=== PATIENT | male | born 1950 | race Caucasian/White ===

== ENCOUNTER → 2024-02-23 11:53 | Outpatient (BNVA) | payer MEDICARE, OTHER, SELFPAY | PROVIDERS: PCP Nurse Practitioner Primary Care; Referring Provider Nurse Practitioner Primary Care; Visit Provider Physical Therapy Assistant | DX: S81.802A Unspecified open wound, left lower leg, initial encounter (principal); X58.XXXA Exposure to other specified factors, initial encounter; B96.5 Pseudomonas (aeruginosa) (mallei) (pseudomallei) as the cause of diseases classified elsewhere | CPT/HCPCS: 99203 ==

== ENCOUNTER → 2024-03-01 11:25 | Outpatient (BNVA) | payer MEDICARE, OTHER, SELFPAY | PROVIDERS: PCP Nurse Practitioner Primary Care; Referring Provider Nurse Practitioner Primary Care; Visit Provider Physical Therapy Assistant | DX: S91.002D Unspecified open wound, left ankle, subsequent encounter (principal); X58.XXXD Exposure to other specified factors, subsequent encounter | CPT/HCPCS: 97605; 99213 ==

== ENCOUNTER → 2024-03-04 10:49 | Outpatient (BNVA) | payer MEDICARE, OTHER, SELFPAY | PROVIDERS: PCP Nurse Practitioner Primary Care; Referring Provider Nurse Practitioner Primary Care; Visit Provider Physical Therapy Assistant | DX: S91.002D Unspecified open wound, left ankle, subsequent encounter (principal); X58.XXXD Exposure to other specified factors, subsequent encounter | CPT/HCPCS: 97605 ==

== ENCOUNTER 2024-03-08 11:23 | Outpatient (REF) | payer MEDICARE, OTHER, SELFPAY | END 2024-03-08 11:24 | disposition home or self-care (01) | LOC: LBN 11:23 | PROVIDERS: PCP Nurse Practitioner Primary Care; Visit Provider Physical Therapy Assistant | DX: Z51.89 Encounter for other specified aftercare (principal) | CPT/HCPCS: 87077; 87070; 87075; 87186; 87205 ==

== ENCOUNTER → 2024-03-08 11:23 | Outpatient (BNVA) | payer MEDICARE, OTHER, SELFPAY | PROVIDERS: PCP Nurse Practitioner Primary Care; Referring Provider Nurse Practitioner Primary Care; Visit Provider Physical Therapy Assistant | DX: S91.002D Unspecified open wound, left ankle, subsequent encounter (principal); X58.XXXD Exposure to other specified factors, subsequent encounter | CPT/HCPCS: 99213 ==

== ENCOUNTER → 2024-03-13 08:45 | Outpatient (BNVA) | payer MEDICARE, OTHER, SELFPAY | PROVIDERS: PCP Nurse Practitioner Primary Care; Referring Provider Nurse Practitioner Primary Care; Visit Provider Physical Therapy Assistant | DX: S91.002D Unspecified open wound, left ankle, subsequent encounter (principal); X58.XXXD Exposure to other specified factors, subsequent encounter | CPT/HCPCS: 99213 ==

== ENCOUNTER → 2024-03-19 09:21 | Outpatient (BNVA) | payer MEDICARE, OTHER, SELFPAY | PROVIDERS: PCP Nurse Practitioner Primary Care; Referring Provider Nurse Practitioner Primary Care; Visit Provider Physical Therapy Assistant | DX: S91.002D Unspecified open wound, left ankle, subsequent encounter (principal); X58.XXXD Exposure to other specified factors, subsequent encounter | CPT/HCPCS: 97597 ==

== ENCOUNTER → 2024-03-25 14:27 | Outpatient (BNVA) | payer MEDICARE, OTHER, SELFPAY | PROVIDERS: PCP Nurse Practitioner Primary Care; Referring Provider Nurse Practitioner Primary Care; Visit Provider Physical Therapy Assistant | DX: S81.802D Unspecified open wound, left lower leg, subsequent encounter (principal); X58.XXXD Exposure to other specified factors, subsequent encounter | CPT/HCPCS: 99213 ==

== ENCOUNTER → 2024-04-05 09:19 | Outpatient (BNVA) | payer MEDICARE, OTHER, SELFPAY | PROVIDERS: PCP Nurse Practitioner Primary Care; Referring Provider Nurse Practitioner Primary Care; Visit Provider Physical Therapy Assistant | DX: S81.802D Unspecified open wound, left lower leg, subsequent encounter (principal); X58.XXXD Exposure to other specified factors, subsequent encounter | CPT/HCPCS: 99213 ==

== ENCOUNTER → 2024-04-19 09:20 | Outpatient (BNVA) | payer MEDICARE, OTHER, SELFPAY | PROVIDERS: PCP Nurse Practitioner Primary Care; Referring Provider Nurse Practitioner Primary Care; Visit Provider Physical Therapy Assistant | DX: S81.802D Unspecified open wound, left lower leg, subsequent encounter (principal); X58.XXXD Exposure to other specified factors, subsequent encounter | CPT/HCPCS: 99213 ==

== ENCOUNTER → 2024-05-10 09:27 | Outpatient (BNVA) | payer MEDICARE, OTHER, SELFPAY | PROVIDERS: PCP Nurse Practitioner Primary Care; Referring Provider Nurse Practitioner Primary Care; Visit Provider Physical Therapy Assistant | DX: S81.802D Unspecified open wound, left lower leg, subsequent encounter (principal); X58.XXXD Exposure to other specified factors, subsequent encounter | CPT/HCPCS: 99213 ==

== ENCOUNTER → 2024-05-24 09:18 | Outpatient (BNVA) | payer MEDICARE, OTHER, SELFPAY | PROVIDERS: PCP Nurse Practitioner Primary Care; Referring Provider Nurse Practitioner Primary Care; Visit Provider Physical Therapy Assistant | DX: S81.802D Unspecified open wound, left lower leg, subsequent encounter (principal); X58.XXXD Exposure to other specified factors, subsequent encounter | CPT/HCPCS: 99213 ==

== ENCOUNTER → 2024-06-14 09:20 | Outpatient (BNVA) | payer MEDICARE, OTHER, SELFPAY | PROVIDERS: PCP Nurse Practitioner Primary Care; Referring Provider Nurse Practitioner Primary Care; Visit Provider Physical Therapy Assistant | DX: S81.802D Unspecified open wound, left lower leg, subsequent encounter (principal); X58.XXXD Exposure to other specified factors, subsequent encounter | CPT/HCPCS: 99213 ==

== ENCOUNTER → 2024-07-19 09:19 | Outpatient (BNVA) | payer MEDICARE, OTHER, SELFPAY | PROVIDERS: PCP Nurse Practitioner Primary Care; Referring Provider Nurse Practitioner Primary Care; Visit Provider Physical Therapy Assistant | DX: S81.802D Unspecified open wound, left lower leg, subsequent encounter (principal); X58.XXXD Exposure to other specified factors, subsequent encounter | CPT/HCPCS: 99213 ==

== ENCOUNTER 2024-08-09 15:33 | Outpatient (REF) | payer MEDICARE, OTHER, SELFPAY ==
[2024-08-09 16:57] LABS: Anion Gap 7.9 mmol/L (3-11); BUN 34 mg/dL (7-18); CO2 27.1 mmol/L (21.0-32.0); CREATININE 1.4 mg/dL (0.70-1.30); Calcium 9.1 mg/dL (8.5-10.1); Calculated LDL 102 mg/dL (<100); Chloride 111 mmol/L (98-107); Cholesterol 192 mg/dL (<200); Glucose 91 mg/dL (74-106); HDL Cholesterol 70 mg/dL (>or=40); Potassium 4.6 mmol/L (3.5-5.1); Sodium 146 mmol/L (136-145); Triglyceride 101 mg/dL (<150)
[2024-08-09 23:01] LABS: PSA, Screening 1.4 ng/mL (<=6.5)
[2024-08-11 10:19] LABS: HIV-1/2 Ag & Ab Screen Negative (Negative)
[2024-08-12 13:26] LABS: Hepatitis C Ab w Rflx HCV PCR Negative (Negative)
== END 2024-08-09 15:34 | disposition home or self-care (01) ==
LOC: NCHCN 15:33
PROVIDERS: PCP Nurse Practitioner Primary Care; Visit Provider Family Medicine
DX: Z11.4 Encounter for screening for human immunodeficiency virus [HIV] (principal); R03.0 Elevated blood-pressure reading, without diagnosis of hypertension; Z12.5 Encounter for screening for malignant neoplasm of prostate; Z11.59 Encounter for screening for other viral diseases
CPT/HCPCS: 80048; 80061; 84153; 86803; 87389

== ENCOUNTER → 2024-08-23 09:30 | Outpatient (BNVA) | payer MEDICARE, OTHER, SELFPAY | PROVIDERS: Visit Provider Physical Therapy Assistant | DX: Z51.89 Encounter for other specified aftercare (principal); S81.802A Unspecified open wound, left lower leg, initial encounter; X58.XXXA Exposure to other specified factors, initial encounter | CPT/HCPCS: 99212 ==

== ENCOUNTER → 2024-09-20 09:20 | Outpatient (BNVA) | payer MEDICARE, OTHER, SELFPAY | PROVIDERS: Visit Provider Physical Therapy Assistant | DX: S81.802D Unspecified open wound, left lower leg, subsequent encounter (principal); X58.XXXD Exposure to other specified factors, subsequent encounter | CPT/HCPCS: 99213 ==

== ENCOUNTER → 2024-10-17 08:26 | Outpatient (BNVA) | payer MEDICARE, OTHER, SELFPAY | PROVIDERS: Visit Provider Physical Therapy Assistant | DX: S91.002D Unspecified open wound, left ankle, subsequent encounter (principal); X58.XXXD Exposure to other specified factors, subsequent encounter | CPT/HCPCS: 99213 ==

== ENCOUNTER 2024-11-06 01:42 | Outpatient (CLI) | payer MEDICARE, OTHER, SELFPAY ==
--- NOTE | 2024-11-06 10:21 | DI.RAD_ITS ---
Exam(s) XR HIP RT COMPLETE AP PELVIS EXAM: XR HIP RT COMPLETE AP PELVIS CLINICAL HISTORY: M25.551 Pain in RT hip. TECHNIQUE: 2D digital imaging was performed of the right hip. Two images were obtained. AP pelvis a nd lateral right hip views were obtained. COMPARISON: No exams were available for comparison FINDINGS: BONES: No acute fracture is present. No bony destructive lesion is seen. The patient's left hip arthr oplasty is incompletely imaged. JOINTS: No dislocation present. There is narrowing of the superior joint space of the right hip. The re is prominent osteophyte of the acetabular roof. SOFT TISSUE: Normal. IMPRESSION: Femoral acetabular impingement with osteoarthritis. Unremarkable radiographs of the pelvis. DATA REPOSITORY: RADIATION DOSE DELIVERED:
== END 2024-11-06 02:02 ==
PROVIDERS: PCP Family Medicine; Visit Provider Family Medicine
DX: M16.11 Unilateral primary osteoarthritis, right hip (principal)
CPT/HCPCS: 73502

== ENCOUNTER 2024-12-16 23:50 | Inpatient (IN) | payer MEDICARE, OTHER, SELFPAY ==
[2024-12-16 23:58] VITALS: BP 155/104; PULSE 90; RESP 20; TEMP 36.8; O2SAT 98
[2024-12-17] VITALS (77 sets, daily range): BP systolic 116–166; BP diastolic 75–99; PULSE 68–91; RESP 10–29; TEMP 36.3–36.9; O2SAT 91–99
--- NOTE | 2024-12-17 | DI.CT_ITS ---
Exam(s) CT ABDOMEN PELVIS W EXAM: CT ABDOMEN PELVIS W CLINICAL HISTORY: abd pain, diffuse tenderness, firm abdomen TECHNIQUE: Imaging Protocol: Axial computed tomography images with coronal and sagittal reformatted images were created and reviewed. CONTRAST MATERIAL: Intravenous: Omnipaque 350 Contrast volume:75 mL Oral: No COMPARISON: CR XR HIP RT COMPLETE AP PELVIS from 11/06/2024 FINDINGS: There is artifact in the pelvis secondary to the patient's left total hip arthroplasty. ABDOMEN: Lung Bases: There is a large hiatal hernia. Liver: Normal density. There is a tiny hypodensity in the right lobe of the liver likely reflecting a cyst. No suspicious hepatic masses are seen. Portal, Superior Mesenteric, and Splenic Veins: Unremarkable. Gallbladder and Biliary Tract: Cholelithiasis. No biliary ductal dilatation. Pancreas: Normal density, no abnormal calcifications or inflammatory process. Spleen: Normal. Adrenals: No masses seen. Kidneys: Normal size, contour and axis. No radiodense stones or obstructive uropathy. No masses seen. Abdominal Aorta: Abdominal portion non-dilated. Atherosclerotic calcification is present. Bowel: There is diverticulosis of the colon, but no evidence of acute diverticulitis. There is a moderate amount of stool throughout the colon suggesting constipation. There are surgical clips seen in the cecum suggesting prior appendicitis. There are fluid-filled dilated loops of small bowel with n ormal caliber old distal small bowel. The transition appears to lie in the mid right abdomen. The stomach is distended. The findings are suspicious for small bowel obstruction. Peritoneal Cavity: No ascites, collection or mesenteric inflammatory response. No free air. Lymph Nodes: Within normal limits. Bones: Within normal limits for the patient's age. There is a bone island in the right iliac bone. The patient has a left total hip arthroplasty. There is a right convex lumbar scoliosis. Soft Tissues: Unremarkable. There is mild fatty atrophy of the left gluteal musculature. PELVIS: Bladder: Symmetric distention, no gross wall thickening. Reproductive Organs: Unremarkable as visualized. Lymph Nodes: Within normal limits. Bones: Within normal limits for the patient's age. IMPRESSION: 1. Findings suggestive of a small-bowel obstruction with the transition in the mid right abdomen. 2. No evidence of pneumoperitoneum or ascites. 3. Cholelithiasis. 4. Colonic diverticulosis without definite evidence to suggest acute diverticulitis. 5. The preliminary [facility] report was reviewed. RADIATION DOSE DELIVERED: 437.4mGy.cm Total DLP DATA REPOSITORY: All CT scans at this facility are submitted to the National Radiology Data Registry (NRDR) Dose Index Registry (DIR) with the [employer] ([employer]). RADIATION OPTIMIZATION: All CT scans at this facility use at least one of these dose optimization techniques: automated exposure control; mA and/or kV adjustment per patient size (includes targeted exams where dose is matched to clinical indication); or iterative reconstruction.
--- NOTE | 2024-12-17 | DI.RAD_ITS ---
Exam(s) XR ABDOMEN FLAT PLATE EXAM: 2D digital imaging was performed. CLINICAL HISTORY: SBO. COMPARISON: CT CT ABDOMEN PELVIS W from 12/17/2024 TECHNIQUE: Supine views of the abdomen was performed. Two views were obtained. FINDINGS: BOWEL GAS PATTERN: Nondistended.There is a single mildly dilated loop of small bowel in the left abdomen. There is air seen in the colon and rectum. CALCIFICATIONS: No radiopaque calcifications. OSSEOUS STRUCTURES: Normal for age. The patient has a left hip arthroplasty. OTHER FINDINGS: Contrast is seen in the renal collecting system consistent with the patient's recent CT examination. IMPRESSION: 1. Nonobstructive bowel gas pattern. 2. Residual identity contrast is seen in the renal collecting system consistent with the patient's recent CT examination. DATA REPOSITORY: RADIATION DOSE DELIVERED:
--- NOTE | 2024-12-17 00:04 | W.ED.GENAD ---
Discharge Plan Disposition Patient Disposition: Admit to [facility] Condition: Fair Discharge Details Clinical Impression: SBO (small bowel obstruction), Sigmoid diverticulitis Primary Care Provider: Marisa Dunn ED Provider: Yoan Haile and New Rx's Prescriptions: No Action ibuprofen 600 mg tablet 600 mg PO Q6H PRN amlodipine 5 mg tablet 5 mg PO DAILY Patient Comments: TAKE ONE TABLET BY MOUTH EVERY DAY HPI General Mode of arrival: ambulatory. Date/Time Provider Initiated Documentation: 12/17/24 00:04. Limitations to Documentation: no limitations. Information obtained by: patient and RN notes reviewed. HPI Narrative: Patient presents to ED with lower abdominal pain. Patient reports that he noted some abdominal discomfort on and off over the last couple of days. This evening pain became constant and worsening. Seems to be mostly across the lower abdomen. Denies any radiation of pain to the groin or back. Denies any nausea, vomiting, diarrhea or change in bowel habit. Denies any urinary symptoms. Denies any fever. He is status post appendectomy in the past, no other abdominal surgeries. He was able to eat this evening without difficulty. Pain became worse throughout the evening and presents now with inability to sleep due to pain. Related Data Home Medications ?Medication ?Instructions ?Recorded ?Confirmed ibuprofen 600 mg tablet 600 mg PO Q6H PRN 02/22/24 12/17/24 amlodipine 5 mg tablet 5 mg PO DAILY 12/17/24 12/17/24 Allergies Allergy/AdvReac Type Severity Reaction Status Date / Time No Known Allergies Allergy Unverified 12/17/24 00:00 General Stated Complaint: Abd Prob NISSA: 3 Exam Narrative Exam Narrative: Const: WDWN elderly male in NAD. VS per triage. HEENT: NC/AT. Normal facial exam. Neck: Supple. Trachea midline. Lungs: Normal respiratory effort. Lungs are clear. Cor: RRR without murmur. Good radial pulses. GI: Soft/ND. Firm with generalized tenderness. Neuro: A+O x 3. Normal speech, mentation, gait. Cranial nerves II - XII grossly intact. No gross motor or sensory deficit. Ext: No C/C/E. Course Vital Signs Vital signs: Vital Signs Temperature 98.2 F 12/16/24 23:58 Pulse 90 12/16/24 23:58 Respiratory Rate 20 12/16/24 23:58 Blood Pressure 155/104 H 12/16/24 23:58 Pulse Oximetry 98 12/16/24 23:58 Temperature 98.2 F 12/16/24 23:58 Temperature Source Oral 12/16/24 23:58 Pulse 90 12/16/24 23:58 Respiratory Rate 20 12/16/24 23:58 Blood Pressure 155/104 H 12/16/24 23:58 Blood Pressure Position Sitting 12/16/24 23:58 Pulse Oximetry 98 12/16/24 23:58 Oxygen Delivery Method Room Air 12/16/24 23:58 Oxygen Flow Rate 0 12/16/24 23:58 Pain Level 8 12/16/24 23:58 Medical Decision Making Elderly male presenting to ED with abdominal pain. He is not febrile and he otherwise looks well but his abdomen is firm and generally tender. IV is established and fluids started. Morphine given for pain. Laboratory studies obtained and a CT scan of the abdomen pelvis is ordered. Initial impression and concern would be diverticulitis with possible perforation. I will cover with ceftriaxone because of the diffuse tenderness and firmness present on exam. Patient's laboratory studies are reassuring. His white count is normal. His differential is normal. Lactic acid and VBG are normal. Electrolytes, liver function, lipase all normal. BUN is a little elevated at 23 but creatinine normal at 1.3. CT scan discussed with radiology directly. Does have a small bowel obstruction that may be partial versus early given feces and air in the colon. His left hip prosthesis causes artifact in the pelvis but there does appear to be probable sigmoid diverticulitis. Patient's pain was improved with morphine. Starting to come back now so we will give a second dose. He is to remain NPO. Will continue fluids and have given him a dose of IV metronidazole. Case discussed with surgery, Dr. Escoto. Okay for now to not place NG tube but patient is to stay n.p.o. Patient to be admitted to hospitalist service and surgery will see in the morning. Patient discussed with Dr. Leal. Patient accepted to hospitalist service for further management. Patient and aware of diagnosis and need for admission and consent to same. Medical Records Medical records reviewed: Yes I reviewed the patient's medical records. Medical records narrative: PCP notes in [facility] Imaging Data Radiologic Study: Attestation: I personally reviewed and interpreted this imaging study as follows: Imaging: CT Scan My impression: SBO Radiologist's impression: IMPRESSION: 1. Consistent with small bowel obstruction as described above. 2. Colonic diverticulosis with perisigmoid fat stranding. This is poorly evaluated due to artifact but sigmoid diverticulitis cannot be excluded. Clinical correlation advised. 3. Additional findings as above. 4. THIS REPORT CONTAINS FINDINGS THAT MAY BE CRITICAL TO PATIENT CARE. The findings were verbally communicated via telephone conference with YOAN HAILE at 1:49 AM EDT on 12/17/2024. The findings were acknowledged and understood. Thank you for allowing us to participate in the care of your patient. Dictated and Authenticated by: Susan Forrester MD Lab Data Lab results reviewed: Yes I reviewed the patient's lab results. Lab results narrative: see MDM PFS All Active Problems (Updated 12/17/24 @ 02:06 by Yoan Haile MD) Sigmoid diverticulitis (Acute) SBO (small bowel obstruction) (Acute) Medical History HTN (hypertension) Surgical History S/P spinal surgery Status post THR (total hip replacement) S/P appendectomy Social History (Updated 12/17/24 @ 00:19 by Yoan Haile MD) Smoking/Tobacco Use Status: Former Tobacco Use Smoking risk assessment performed?: Yes Housing: house
[2024-12-17 00:15] LABS: BE (Venous) 3 mmol/L (-2-3); HCO3 (Venous) 28 mmol/L (23-28); O2 Sat (Venous) 61 %; TCO2 (Venous) 25 mmol/L (24-29); pCO2 (Venous) 48 mmHg (41-51); pO2 (Venous) 34 mmHg
[2024-12-17 00:17] LABS: Abs Immature Grans 0.02 10^3/uL (0.0-0.06); HCT 40.0 % (40.0-50.0); HGB 13.2 g/dL (13.5-17.5); Immature Grans % 0.3 %; MCH 30.3 pg (27.0-33.0); MCHC 33.0 % (32.0-36.0); MCV 92 fL (80-95); MPV 11.7 fL (8.0-11.0); Platelet Count 201 10^3/uL (130-400); RBC 4.35 10^6/uL (4.36-5.78); RDW 13.9 % (11.8-14.1); RDW-SD 47.6 fL; WBC 6.41 10^3/uL (4.4-10.8)
[2024-12-17] MEDS: Normal Saline 1,000 ML 1000 ML IV (00:24)
[2024-12-17] MEDS: MORPHine 4 MG/ML SYR IVP (00:24)
[2024-12-17 00:32] LABS: ALT 21 U/L (16-63); AST 18 U/L (15-37); Albumin 3.9 g/dL (3.4-5.0); Alkaline Phosphatase 97 U/L (46-116); Anion Gap 10.7 mmol/L (3-11); BUN 23 mg/dL (7-18); Bilirubin, Total 0.5 mg/dL (0.2-1.0); CO2 26.3 mmol/L (21.0-32.0); Calcium 9.2 mg/dL (8.5-10.1); Chloride 106 mmol/L (98-107); Estimated GFR 58.37 (mL/min/1.73m2); Glucose 110 mg/dL (74-106); Lipase 50 U/L (<78); Magnesium 2.1 mg/dL (1.8-2.4); Potassium 4.5 mmol/L (3.5-5.1); Sodium 143 mmol/L (136-145); Total Protein 7.4 g/dL (6.4-8.2)
[2024-12-17] MEDS: cefTRIAXone 1 GM/50 ML BAG IVPB ×2 (00:32→22:03)
[2024-12-17] MEDS: Omnipaque 350 MG/ML 100 ML BTL IJ (00:41)
[2024-12-17] MEDS: Normal Saline Flush 10 ML SYR IVP (00:43)
[2024-12-17] MEDS: Normal Saline - Diluent 50 ML VIAL IJ (00:43)
--- NOTE | 2024-12-17 01:51 | DI.[facility]_ITS ---
PROCEDURE INFORMATION: Exam: CT Abdomen And Pelvis With Contrast Exam date and time: 12/17/2024 12:43 AM Age: 74 years old Clinical indication: Abdominal pain; Prior surgery; Surgery date: 6+ months; Surgery type: Appendectomy, L hip; Abd pain, diffuse tenderness, firm abdomen TECHNIQUE: Imaging protocol: Computed tomography of the abdomen and pelvis with contrast. Radiation optimization: All CT scans at this facility use at least one of these dose optimization techniques: automated exposure control; mA and/or kV adjustment per patient size (includes targeted exams where dose is matched to clinical indication); or iterative reconstruction. Contrast material: OMNIPAQUE 350; Contrast volume: 75 ml; Contrast route: INTRAVENOUS (IV); COMPARISON: No relevant prior studies are available for comparison. FINDINGS: Limitations: Artifact from left hip prosthesis limits evaluation of the surrounding tissues. Lungs: Scarring at the lung bases. Heart: Pericardial calcifications. Diaphragm: Large hiatal hernia, incompletely imaged. Liver: Low attenuation lesions in the liver too small to accurately characterize on CT. Borderline hepatomegaly. Gallbladder and biliary ducts: Multiple gallbladder calculi. Pancreas: No CT evidence for acute pancreatitis. Spleen: No splenomegaly. Adrenal glands: No mass. Kidneys and ureters: No hydronephrosis or evidence for pyelonephritis. Stomach and bowel: Multiple distended borderline dilated air and fluid-filled small bowel loops are identified and collapsed loops are also seen. Findings are consistent with small bowel obstruction. Transition point seen in the mid abdomen. Gas and fecal material are present in the colon, suggesting that the obstruction may be early/partial or intermittent. Colonic diverticula noted. Mild stranding in the perisigmoid fat in the pelvis, poorly evaluated due to artifact. Cannot exclude diverticulitis. Appendix: No evidence of appendicitis. Intraperitoneal space: See Stomach and bowel finding. Vasculature: Atherosclerotic changes in the aorta and its branches. Lymph nodes: Nonspecific mesenteric and retroperitoneal lymph nodes. Urinary bladder: No acute findings. Reproductive: No acute findings. Bones/joints: Left hip prosthesis. Artifact limits evaluation of the surrounding tissues. Soft tissues: No pertinent acute abnormality seen. IMPRESSION: 1. Consistent with small bowel obstruction as described above. 2. Colonic diverticulosis with perisigmoid fat stranding. This is poorly evaluated due to artifact but sigmoid diverticulitis cannot be excluded. Clinical correlation advised. 3. Additional findings as above. 4. THIS REPORT CONTAINS FINDINGS THAT MAY BE CRITICAL TO PATIENT CARE. The findings were verbally communicated via telephone conference with YOAN HAILE at 1:49 AM EDT on 12/17/2024. The findings were acknowledged and understood. Dictated and Authenticated by: Susan Forrester MD. Orderin Jesus Hensley MD
[2024-12-17] MEDS: metroNIDAZOLE 500 MG/100 ML BAG 100 MG IVPB ×4 (02:00→19:46)
--- NOTE | 2024-12-17 02:14 | HPE_ITS ---
Date of service: 12/17/24 Time of Service: 02:14 Assessment and Plan Assessment and plan (1) Sigmoid diverticulitis: Status: Acute Assessment and plan: - As seen on CT abdomen pelvis - Without elevated white cell count, or signs of perforation, may be primary cause of partial/early SBO as noted below - Started on ceftriaxone and Flagyl IV, will continue (2) SBO (small bowel obstruction): Status: Acute Assessment and plan: - Again, as seen on CT abdomen pelvis as noted above - May be secondary to diverticulitis as noted above - Given the patient is without nausea or vomiting, NG tube not been placed at this time as discussed with general surgery - N.p.o. - Has caused significant abdominal pain is received IV morphine in the emergency department - Will give 1 mg IV Dilaudid every 4 hours as needed for pain - If patient does develop worsening abdominal pain, nausea or vomiting will place NG tube and repeat discussed with general surgery (3) HTN (hypertension): Assessment and plan: - Hold home p.o. amlodipine - Monitor blood pressure and give IV antihypertensive if needed History of Present Illness History of Present Illness Chief Complaint: abdominal pain Narrative: 74-year-old gentleman with a past medical history of hypertension who presents to the emergency department with abdominal pain. Patient states that over the last few days he has had on and off abdominal pain that has become significantly worse on the evening but he arrived to the emergency department. He says it is across his lower abdomen denies it radiating to his back or groin. He denies any fevers, chest pain, shortness of breath, nausea vomiting diarrhea or decrease in frequency of bowel movements. In the emergency department patient was noted as having normal vital signs, CBC, CMP. However, given his abdominal pain he had a CT abdomen pelvis that did show some diverticulitis and may be early small bowel obstruction/partial obstruction given the feces and air were seen in the colon. Case was discussed with general surgery and agreed that patient did not need NG tube as he was not experiencing nausea or vomiting however did recommend him being n.p.o. and initiating antibiotics for his diverticulitis for which she was started on ceftriaxone and Flagyl. At which time emergency room physician paged hospitalist for admission for patient with diverticulitis and possible partial/early small bowel obstruction. Review of Systems All systems reviewed & are unremarkable except as noted in HPI and below PFSH All Active Problems (Updated 12/17/24 @ 02:06 by Ayden Lee MD) Sigmoid diverticulitis (Acute) SBO (small bowel obstruction) (Acute) Medical History HTN (hypertension) Surgical History S/P spinal surgery Status post THR (total hip replacement) S/P appendectomy Social History (Updated 12/17/24 @ 00:19 by Ayden Lee MD) Smoking/Tobacco Use Status: Former Tobacco Use Smoking risk assessment performed?: Yes Housing: house Meds Allergies and Home Medications Allergies Allergy/AdvReac Type Severity Reaction Status Date / Time No Known Allergies Allergy Unverified 12/17/24 00:00 Home Medications ?Medication ?Instructions ?Recorded ?Confirmed ?Type ibuprofen 600 mg tablet 600 mg PO Q6H PRN 02/22/24 0 12/17/24 History amlodipine 5 mg tablet 5 mg PO DAILY 12/17/2412/17 History Exam Narrative Exam Narrative: Well-appearing older gentleman laying in bed in no acute distress, ANO x 4, heart regular rhythm, lungs clear to auscultation bilaterally, abdomen with mild to moderate tenderness to palpation of lower quadrants without rebound or guarding, positive bowel sounds Results Labs 12/17/24 05:15 12/17/24 05:15 Labs: Laboratory Results - last 24 hr 12/17/24 00:05 WBC 6.41 RBC 4.35 L Hgb 13.2 L Hct 40.0 MCV 92 MCH 30.3 MCHC 33.0 RDW 13.9 Plt Count 201 MPV 11.7 H Immature Gran % 0.3 Neutrophils % 69.5 Lymphocytes % 21.5 Monocytes % 6.2 Eosinophils % 1.9 Basophils % 0.6 Nucleated RBC % 0.0 Absolute Neutrophils 4.45 Absolute Lymphocytes 1.38 Absolute Monocytes 0.40 Absolute Eosinophils 0.12 Absolute Basophils 0.04 VBG pH 7.37 VBG pCO2 48 VBG pO2 34 VBG HCO3 28 VBG Total CO2 25 VBG O2 Saturation 61 VBG Base Excess 3 VBG Lactate 0.7 Sodium 143 Potassium 4.5 Chloride 106 Carbon Dioxide 26.3 Anion Gap 10.7 BUN 23 H Creatinine 1.3 Est GFR (CKD-EPI 2020) 58.37 Glucose 110 H Calcium 9.2 Magnesium 2.1 Total Bilirubin 0.5 AST 18 ALT 21 Alkaline Phosphatase 97 Total Protein 7.4 Albumin 3.9 Lipase 50 Last Vital Signs Temp 98.2 F 12/16/24 23:58 Pulse 72 12/17/24 01:50 Resp 17 12/17/24 01:50 BP 148/95 H 12/17/24 01:30 Pulse Ox 95 12/17/24 01:50 Time Spent Time spent with Patient: >75 minutes Time was spent: preparing to see the patient(eg.review tests), obtaining and/or reviewing separately otained hiistory, ordering medications,tests, procedures, referring, communicating with other health healthcare market consultant, indepentently interpreting results, counseling the patient and care coordination
[2024-12-17] MEDS: HYDROmorphone 2 MG/ML SYR 1 MG IVP ×6 (02:29→23:56)
[2024-12-17] MEDS: Normal Saline 1,000 ML 75 ML IV ×2 (03:05→19:35)
[2024-12-17 05:19] LABS: HCT 36.7 % (40.0-50.0); HGB 12.1 g/dL (13.5-17.5); MCH 30.6 pg (27.0-33.0); MCHC 33.0 % (32.0-36.0); MCV 93 fL (80-95); MPV 11.3 fL (8.0-11.0); Platelet Count 160 10^3/uL (130-400); RBC 3.96 10^6/uL (4.36-5.78); RDW 14.0 % (11.8-14.1); RDW-SD 48.0 fL; WBC 6.08 10^3/uL (4.4-10.8)
[2024-12-17 05:30] LABS: Anion Gap 6.1 mmol/L (3-11); BUN 21 mg/dL (7-18); CO2 28.9 mmol/L (21.0-32.0); Calcium 8.4 mg/dL (8.5-10.1); Chloride 108 mmol/L (98-107); Estimated GFR 71.32 (mL/min/1.73m2); Glucose 123 mg/dL (74-106); Potassium 4.5 mmol/L (3.5-5.1); Sodium 143 mmol/L (136-145)
--- NOTE | 2024-12-17 07:21 | W.SURGCON ---
Date of service: 12/17/24 Time of Service: 07:22 Assessment and Plan Assessment and plan (1) SBO (small bowel obstruction): Status: Acute Assessment and plan: Worsening pain after eating last night and CT scan showing proximal small bowel dilation with distal decompression consistent with partial small bowel obstruction. Gas in the colon indicates not complete obstruction. Patient had bowel movement yesterday, which was normal. No prior similar symptoms. Stomach not distended on imaging and patient without nausea or vomiting - No NG tube necessary at this time - Follow-up KUB this morning - Will likely start clear liquid diet?pending KUB - encouraged ambulation - reviewed scar tissue from prior surgery as likely cause for small bowel obstruction (2) Sigmoid diverticulitis: Status: Acute Assessment and plan: Sigmoid colon with diverticuli and possible local inflammation on CT scan. No evidence of perforation or abscess. Images degraded by streak artifact from hip replacement - Continue IV antibiotics - No acute surgical intervention necessary for either process at this time- (3) HTN (hypertension): Assessment and plan: - Continue home medication per medicine team History of Present Illness History of Present Illness Chief Complaint: lower abdominal pain Narrative: 74-year-old male with history of appendectomy in the past presenting for lower abdominal pain. Pain started 3 days ago. Patient was able to tolerate dinner but then pain became worse in the evening, preventing him from sleeping. No similar pain in the past. Denies fevers, chills, chest pain, shortness of breath. No nausea or vomiting. Last bowel movement yesterday morning. Pain remains in the lower abdomen, slightly improved. No radiation or migration of pain. Last bowel movement soft. No blood or melena Review of Systems Constitutional Constitutional: Denies anorexia, Denies chills, Denies fever(s) and Denies weakness Cardiovascular Cardiovascular: Denies chest pain, Denies irregular heart rhythm and Denies dyspnea Respiratory Respiratory: Denies cough and Denies dyspnea Gastrointestinal Gastrointestinal: Reports abdominal pain, Denies melena, Denies hematochezia, Denies change in bowel habits, Denies constipation, Denies diarrhea, Denies nausea and Denies vomiting Genitourinary Genitourinary: Denies hematuria, Denies difficulty urinating and Denies dysuria Neurologic Neurologic: Denies weakness Hematologic/Lymphatic Hematologic/Lymphatic: Denies easy bleeding and Denies easy bruising [facility] All Active Problems (Updated 12/17/24 @ 10:36 by Michael Escoto DO) Sigmoid diverticulitis (Acute) SBO (small bowel obstruction) (Acute) Medical History HTN (hypertension) Surgical History S/P spinal surgery Status post THR (total hip replacement) S/P appendectomy Social History Smoking/Tobacco Use Status: Former Tobacco Use Smoking risk assessment performed?: Yes Housing: house Exam Const General: cooperative, healthy appearing, comfortable and no acute distress Eyes Sclera: sclerae normal Pupils: PERRL EOM: EOM intact bilaterally Resp Effort & Inspection: normal respiratory effort and no cough Cardio Rate: regular rate Rhythm: regular rhythm GI Inspection: normal to inspection and non-distended Palpation: no guarding and tender other (across lower abdomen) Skin General skin exam: turgor normal, no ecchymosis and no pallor Neuro General: patient alert, patient awake and patient oriented x3 Cognition: normal cognition Speech: speech normal Results Last Vital Signs Temp 36.8 C 12/16/24 23:58 Pulse 72 12/17/24 06:10 Resp 16 12/17/24 06:10 BP 139/92 H 12/17/24 06:00 Pulse Ox 96 12/17/24 06:10 Labs 12/17/24 05:15 12/17/24 05:15 Labs: Laboratory Results - last 24 hr 12/17/24 12/17/24 00:05 05:15 WBC 6.41 6.08 RBC 4.35 L 3.96 L Hgb 13.2 L 12.1 L Hct 40.0 36.7 L MCV 92 93 MCH 30.3 30.6 MCHC 33.0 33.0 RDW 13.9 14.0 Plt Count 201 160 MPV 11.7 H 11.3 H Immature Gran % 0.3 Neutrophils % 69.5 Lymphocytes % 21.5 Monocytes % 6.2 Eosinophils % 1.9 Basophils % 0.6 Nucleated RBC % 0.0 Absolute Neutrophils 4.45 Absolute Lymphocytes 1.38 Absolute Monocytes 0.40 Absolute Eosinophils 0.12 Absolute Basophils 0.04 VBG pH 7.37 VBG pCO2 48 VBG pO2 34 VBG HCO3 28 VBG Total CO2 25 VBG O2 Saturation 61 VBG Base Excess 3 VBG Lactate 0.7 Sodium 143 143 Potassium 4.5 4.5 Chloride 106 108 H Carbon Dioxide 26.3 28.9 Anion Gap 10.7 6.1 BUN 23 H 21 H Creatinine 1.3 1.1 Est GFR (CKD-EPI 2020) 58.37 71.32 Glucose 110 H 123 H Calcium 9.2 8.4 L Magnesium 2.1 Total Bilirubin 0.5 AST 18 ALT 21 Alkaline Phosphatase 97 Total Protein 7.4 Albumin 3.9 Lipase [address] scan report/results: report reviewed and image reviewed (distal small bowel decompressed with proximal dilation but gas in colon. possible inflamation of sigmoid colon. streak artifact with left hip replacement)
--- NOTE | 2024-12-17 10:34 | PDOC.CMIN ---
Date of service: 12/17/24 Time of Service: 10:34 Care Management Initial Assmt Initial Assessment Reason for Hospitalization: diverticulitis, SBO Functional Status/Living Situation Patient Presentation: Bryan was lying in bed when CM met with him. He reported that he is having a lot of pain in his shoulder; he stated that he informed his RN, who gave him some pain medication less than an hour ago. CM informed his RN of his pain, who planned to go and assess him. Bryan stated that he has been in the ED overnight, and just recently was brought up to M/S. He reported that he lives in [facility] with his girlfriend, Sully. He is retired; he worked in [employer] and [employer]. He stated that per MD, he is NPO at this time, but can have ice chips. He stated that he was in too much pain to continue the conversation. CM will continue to follow. Town of Residence: [place] Resides with: Spouse (industrial workers, Sully) Natural Supports: girlfriend, Sully Employment Status: Retired Instrumental Activities of Daily Living (ADLs): Independent Medications Medication Management: No Issues/Barriers identified Physical Functioning/Mobility Assistive Device: none Advance Directives Advance Directives: Do you have an Advance Directive: N Today, 02:23 AD On File at [facility]: N 11/05/24, 13:22 Date Asked 12/17/24 Today, 02:23 AD Date Reviewed COLST On File at [facility] COLST Date Scanned Code Status Resuscitation Status Full Code Insurance Coverage/Financial Issues Insurance: [facility] supplement Care Team Visit Care Team Role Provider Type Marisa Dunn Primary Care Provider NON-[facility] STAFF PHYSICIAN Michael Escoto, DO Other Providers OSTEOPATHIC DOCTOR Ayden Lee MD Emergency Provider [facility] STAFF PHYSICIAN Moises Leal MD Admit Provider [facility] STAFF PHYSICIAN Attending Provider Discharge Potential Discharge Needs: PCP F/U Appt Anticipated Barriers to Discharge: None Identified Patient/Family Education Needs: Review discharge instructions, discuss Ask Me Three Transportation: Private vehicle Plan: Anticipate Bryan will return home when medically cleared. His S/O will drive him home via private vehicle when ready. He will follow up with his PCP and discharge plan of care. CM will continue to follow. Social Determinants of Health Screening Will the Patient Participate in the Screening?: Unable to obtain PFSH All Active Problems (Updated 12/17/24 @ 10:36 by Michael Escoto DO) Sigmoid diverticulitis (Acute) SBO (small bowel obstruction) (Acute) Medical History HTN (hypertension) Surgical History S/P spinal surgery Status post THR (total hip replacement) S/P appendectomy Social History Smoking/Tobacco Use Status: Former Tobacco Use Smoking risk assessment performed?: Yes Housing: house
--- NOTE | 2024-12-17 18:30 | W.PC.ACHO ---
Registration Status: ADM IN Primary Language: Preferred Language: ED Information & Data Chief Complaint Abd Prob 12/17/24 00:33 Chief Complaint Abd Prob 12/17/24 00:11 Triage Note Pt c/o L>R lower abd pain 12/16/24 23:58 started tonight around 1800, states has been coming on over last few days. No n/v/d , states shooting pain that comes and goes, 01/12. Denies CP and SOB. Normal BM and habits. Medical / Surgical History (Last Reviewed 12/17/24 @ 10:30 by Michael Escoto DO) HTN (hypertension) (Last Reviewed 12/17/24 @ 10:30 by Michael Escoto DO) S/P spinal surgery Status post THR (total hip replacement) S/P appendectomy Most Recent Vital Signs Temperature 36.6 C 12/17/24 16:32 Temperature Source Temporal Artery Scan 12/17/24 14:39 Pulse 88 12/17/24 16:32 Pulse 88 12/17/24 09:40 Respiratory Rate 16 12/17/24 16:32 Respiratory Effort Normal, Non-Labored 12/17/24 16:32 Respiratory Depth Normal 12/17/24 16:32 Respiratory Pattern Normal 12/17/24 16:32 Blood Pressure 144/98 H 12/17/24 16:32 Blood Pressure Mean 113 12/17/24 14:39 Blood Pressure Position Sitting 12/16/24 23:58 Pulse Oximetry 97 12/17/24 16:32 Oxygen Delivery Method Room Air 12/17/24 16:32 Oxygen Flow Rate 0 12/17/24 16:32 Pain Level 6 12/17/24 09:53 Allergies No Known Allergies Allergy (Unverified 12/17/24 00:00) Precautions Isolation Standard precaution 12/17/24 00:33 Active Medications Generic Name Dose Route Start Last Admin Trade Name Freq PRN Reason Stop Dose Admin Hydromorphone HCl 1 mg 12/17/24 02:14 12/17/24 14:50 Hydromorphone 2 Mg/Ml Syr IVP 1 mg Q4H PRN PRN Administration Sodium Chloride 1,000 mls @ 75 mls/hr 12/17/24 02:44 12/17/24 03:05 Saline 1000ml Bag IV 75 mls/hr INFUSION WALLY Administration Metronidazole 500 mg in 100 mls @ 100 mls/hr 12/17/24 08:00 12/17/24 16:14 Flagyl IVPB Infused Q6H WALLY Infusion Iohexol 100 ml 12/17/24 00:45 12/17/24 00:41 Omnipaque 350 Mg/Ml 100 Ml Btl IJ 01/16/25 23:59 75 ml DIRECTED WALLY Administration Sodium Chloride 0 ml 12/17/24 00:09 12/17/24 00:43 Normal Saline Flush 10 Ml Syr IVP 10 ml PRN PRN Administration Sodium Chloride 50 ml 12/17/24 00:45 12/17/24 00:43 Normal Saline - Diluent 50 Ml Vial IJ 50 ml .FOR DI USE WALLY Administration IV IV Catheter Type [Right Peripheral IV Antecubital] IV Catheter Gauge [Right 18 Antecubital] Diet Orders Category Date Time Status DIET [Regular/Normal] [DIET] Nutrition 12/17/24 Dinner Active Diagnostics 12/17/24 12/17/24 Range/Units 05:15 00:05 WBC 6.08 6.41 (4.4-10.8) 10^3/uL RBC 3.96 L 4.35 L (4.36-5.78) 10^6/uL Hgb 12.1 L 13.2 L (13.5-17.5) g/dL Hct 36.7 L 40.0 (40.0-50.0) % MCV 93 92 (80-95) fL MCH 30.6 30.3 (27.0-33.0) pg MCHC 33.0 33.0 (32.0-36.0) % RDW 14.0 13.9 (11.8-14.1) % Plt Count 160 201 (130-400) 10^3/uL MPV 11.3 H 11.7 H (8.0-11.0) fL Immature Gran % 0.3 % Neutrophils % 69.5 % Lymphocytes % 21.5 % Monocytes % 6.2 % Eosinophils % 1.9 % Basophils % 0.6 % Nucleated RBC % 0.0 (0.0-0.3) % Absolute Neutrophils 4.45 (1.2-6.7) 10^3/uL Absolute Lymphocytes 1.38 (1.2-3.4) 10^3/uL Absolute Monocytes 0.40 (0.1-0.8) 10^3/uL Absolute Eosinophils 0.12 (0.0-0.7) 10^3/uL Absolute Basophils 0.04 (0.0-0.2) 10^3/uL VBG pH 7.37 (7.31-7.41) VBG pCO2 48 (41-51) mmHg VBG pO2 34 mmHg VBG HCO3 28 (23-28) mmol/L VBG Total CO2 25 (24-29) mmol/L VBG O2 Saturation 61 % VBG Base Excess 3 (-2-3) mmol/L VBG Lactate 0.7 (<or=2.0) mmol/L Sodium 143 143 (136-145) mmol/L Potassium 4.5 4.5 (3.5-5.1) mmol/L Chloride 108 H 106 (98-107) mmol/L Carbon Dioxide 28.9 26.3 (21.0-32.0) mmol/L Anion Gap 6.1 10.7 (3-11) mmol/L BUN 21 H 23 H (7-18) mg/dL Creatinine 1.1 1.3 (0.70-1.30) mg/dL Est GFR (CKD-EPI 2020) 71.32 58.37 (mL/min/1.73m2) Glucose 123 H 110 H (74-106) mg/dL Calcium 8.4 L 9.2 (8.5-10.1) mg/dL Magnesium 2.1 (1.8-2.4) mg/dL Total Bilirubin 0.5 (0.2-1.0) mg/dL AST 18 (15-37) U/L ALT 21 (16-63) U/L Alkaline Phosphatase 97 (46-116) U/L Total Protein 7.4 (6.4-8.2) g/dL Albumin 3.9 (3.4-5.0) g/dL Lipase 50 (<78) U/L Intake and Output - 24 Hour Total 12/16/24 23:50 thru 12/17/24 16:32 Intake Total 1360 Balance 1360 Weight 77.21 kg Intake: IV 1360 Other: Urine Appearance Clear Falls Risk Assessment History of Falls No History 12/17/24 16:32 Contributing Factors No Factors 12/17/24 16:32 Ambulatory Aids Independent 12/17/24 16:32 Tubes/Lines W/no contributing factors 12/17/24 16:32 Gait Evaluation No gait disturbance 12/17/24 16:32 Cognition No cognitive impairment 12/17/24 00:33 Fall Total Score 10 12/17/24 16:32 Level of Risk Standard/Low Risk 12/17/24 16:32 Problems (Last Reviewed 12/17/24 @ 10:30 by Michael Escoto, DO) Sigmoid diverticulitis (Acute) SBO (small bowel obstruction) (Acute) v v v v v v v v v Sending and/or Receiving Nurses: Please use comment section below to note any information pertinent to the patient hand-off not included above. Information / Comments:74 year old male with partial small bowel obstruction. No nausea noted, some pain with po intake. Report received from:Latanya
[2024-12-18] MEDS: metroNIDAZOLE 500 MG/100 ML BAG 100 MG IVPB ×4 (02:16→20:31)
[2024-12-18 03:43] VITALS: BP 168/96; PULSE 106; RESP 16; TEMP 36.1; O2SAT 94
[2024-12-18] MEDS: HYDROmorphone 2 MG/ML SYR 1 MG IVP ×4 (05:58→19:52)
[2024-12-18 07:48] VITALS: BP 142/110; PULSE 89; RESP 18; TEMP 37.1; O2SAT 93
--- NOTE | 2024-12-18 09:00 | W.PM.PROGNOT ---
Date of Service Date of service: 12/18/24 Time of Service: 09:00 Assessment and Plan Assessment and plan (1) Sigmoid diverticulitis: Status: Acute Assessment and plan: Improving on rocephin and flagyl. Not tolerating liquids well yet, do not advance diet yet this AM. Monitor him today and if CLD tolerance improves we can advance him later on today. For now he needs more time on IV abx. Diverticulitis likely resulted in inflammatory change that caused SBO. As diverticulitis improves, SBO improves. No plan for surgical intervention at this time. okay to give dvt chemoppx. Colonoscopy was wihtin last 10 years. Need to find his records, if more than 5 years ago I will recommend elective outpt colonoscopy in 8 weeks. (2) SBO (small bowel obstruction): Status: Acute Assessment and plan: Passing minimal flatus, improving slowly but not resolved. Diverticulitis likely resulted in inflammatory change that caused SBO. As diverticulitis improves, SBO improves. No need for NG tube, awaiting more consistent bowel function and tolerance of oral intake before advancing diet. Subjective Subjective Interval history since last seen: 74-year-old male admitted with small bowel obstruction and sigmoid diverticulitis. He says that he has started to pass some gas though it has been a very small amount. He feels less distended. He feels less pain. He still has nausea and a severe loss of appetite. He says that the clear liquids did not go well. When he ice chips he would feel cramping and pain in his lower abdomen. He has not had a bowel movement in several days. Exam Narrative Exam Narrative: awake, NAD eomi, MMM normal resp effort abd soft, nondistended, ttp lower abdomen and LLQ, no guarding no c/c/e Objective Last Vital Signs Temp 98.8 F 12/18/24 07:48 Pulse 89 12/18/24 07:48 Resp 18 12/18/24 07:48 BP 142/110 H 12/18/24 07:48 Pulse Ox 93 12/18/24 07:48 Reviewed Pertinent PMH: Yes Time Spent with Patient Time Spent with Patient: 25-34 minutes Time was spent: preparing to see the patient(eg.review tests), indepentently interpreting results and counseling the patient
[2024-12-18 11:11] VITALS: BP 137/80; PULSE 87; RESP 16; TEMP 37.5; O2SAT 96
[2024-12-18 15:13] VITALS: BP 166/92; PULSE 100; RESP 22; TEMP 36.6; O2SAT 95
--- NOTE | 2024-12-18 15:40 | W.SPSTE ---
Date of service: 12/18/24 Time of Service: 15:40 Subjective Clinical (Bedside) Swallow Evaluation - Inpatient Speech Language Pathology Referred by: Ayden Lopez MD Start time: 3:20 End time: 3:40 Total patient contact: 20 min Referral Type: Routine Swallow Consult Precautions: Standard, Full Code Reason for Referral/HPI: [meditor box] Bryan Almeida is a 74 y/o M with history of HTN and spinal surgery admitted with small bowel obstruction and sigmoid diverticulitis. Imaging also revealed likely large hiatal hernia. He was was observed by nursing to be coughing persistently with/after thin liquids and OCCUPATIONAL THERAPY MANAGER consult was placed. Patient was started on 12/17 on clear liquids diet but has struggled to tolerate this so far due to discomfort and coughing. OCCUPATIONAL THERAPY MANAGER IMPRESSIONS & RECOMMENDATIONS: Patient presents with classic esophageal symptoms which is consistent with profile of SBO and hiatal hernia, likely experiencing exacerbated esophageal sx in setting of GI obstruction. Trialed very limited amts of thin liquids including jello; patient presents with WFL/safe oral-pharyngeal swallow, but with dry cough likely secondary to reflux or esophageal stasis which begins several minutes later. Patient endorses chest pressure and burning with trials. It is unlikely that he will experience reflux aspiration if he is taking very small amounts of liquids at a slow pace at this time. If whole pills are not tolerated comfortably, may try crushing them and serving in a bite of jello followed by small sips of liquid. FURTHER INPATIENT OCCUPATIONAL THERAPY MANAGER SERVICES: No further OCCUPATIONAL THERAPY MANAGER services indicated, please re-refer if new sx arise once SBO is resolved. If symptoms persist, refer to GI. DISCHARGE RECOMMENDATIONS: No further OCCUPATIONAL THERAPY MANAGER services indicated/Please re-refer as needed Diet Recommendations: ? Continue with Surgery recommendations for clear liquids only and advance as tolerated per their recommendations. MEDICATIONS: Whole or crushed as able With 0-Thin Liquids (jello ok) Alter medications only as advised by MD or Pharmacist RISK MANAGEMENT: Level of Assistance/Supervision: Independent Positioning and environment: [place] upright for all PO intake. Oral hygiene BID/2x per day Using friction with toothbrush on all oral structures as tolerated Strategies/Adaptations/Assistive Equipment: Small sips Small bites Very slow rate of intake: Start with only up to 10 sips or bites at a time for esophageal sx Advance volumes as SBO clears/as tolerated Alternate intake of liquids and solids Maintain fully upright position at least 30 minutes after meals Avoid meals/snacks 2-3 hours prior to reclining/sleeping Sleep with head of bed elevated to reduce likelihood of nocturnal reflux Education Provided to: Nursing Patient Topics Addressed: anatomy/physiology of swallowing mechanism definition and impacts of aspiration impact of current diagnoses on swallow function role of OCCUPATIONAL THERAPY MANAGER in management of swallow disorders overt s/sx to monitor for re: potential aspiration of food / liquids relationship between reflux, GERD and swallow fxn relationship between respiratory function and deglutition rationale and instruction for additional risk management strategies as above ------ SUBJECTIVE: Patient received: alert/awake. Agreeable to evaluation. Baseline Swallow Function: Patient denies swallowing difficulty prior to admission and eats a regular diet at baseline. Patient reports dealing with reflux/heartburn in the past. No other baseline reported swallow sx. He endorses in the last two days experiencing dry, sometimes painful/intractible cough with PO intake, usually after several minutes delay, but at times immediately following PO intake. 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 Speech: WFL Oral Mechanism Examination: Dentition: Natural dentition , fair condition Oral mucosa: WFL ? Cranial Nerve Assessment: CN V ? Trigeminal Facial Sensation WNL Jaw Strength/ROM WNL ?WNL CN VII- Facial WNL labial ROM, strength, coordination. WNL lingual sensation WNL CN IX ? Glossopharyngeal WNL palatal elevation with phonation. No evidence of nasal emissions WNL CN X ? Vagus WNL Vocal quality and volume. Strong/sharp volitional cough WNL CX XII ? Hypoglossal WNL lingual ROM, strength, coordination WNL PO Intake: Trials Assessed: IDDSI 0 Thin Liquids Oral Phase Findings: WFL Pharyngeal Phase Findings: Delayed, mild persistent dry cough several minutes after PO trials Esophageal Phase Findings: Patient reports esophageal stasis, burning, pressure Belching observed PLAN: No further OCCUPATIONAL THERAPY MANAGER services indicated at this time. Please re-refer as needed. OCCUPATIONAL THERAPY MANAGER CPT Code: 42199 Clinical Swallowing Evaluation
--- NOTE | 2024-12-18 15:47 | W.PM.PROGNOT ---
Date of Service Date of service: 12/18/24 Time of Service: 15:47 Assessment and Plan Assessment and plan (1) Sigmoid diverticulitis: Status: Acute Assessment and plan: - As seen on CT abdomen pelvis - Without elevated white cell count, or signs of perforation, may be primary cause of partial/early SBO as noted below - Started on ceftriaxone and Flagyl IV, will continue 12/18/24 cw conservative management (2) SBO (small bowel obstruction): Status: Acute Assessment and plan: - Again, as seen on CT abdomen pelvis as noted above - May be secondary to diverticulitis as noted above - Given the patient is without nausea or vomiting, NG tube not been placed at this time as discussed with general surgery - N.p.o. - Has caused significant abdominal pain is received IV morphine in the emergency department - Will give 1 mg IV Dilaudid every 4 hours as needed for pain - If patient does develop worsening abdominal pain, nausea or vomiting will place NG tube and repeat discussed with general surgery (3) HTN (hypertension): Assessment and plan: - Hold home p.o. amlodipine - Monitor blood pressure and give IV antihypertensive if needed Subjective Subjective Interval history since last seen: still with abd pain. Mild anorexia. Passing some flatus. Notes reviewed from GS Exam Narrative Exam Narrative: Well-appearing older gentleman laying in bed in no acute distress, ANO x 4, heart regular rhythm, lungs clear to auscultation bilaterally, abdomen with mild to moderate tenderness to palpation of lower quadrants without rebound or guarding, positive bowel sounds Objective Last Vital Signs Temp 36.6 C 12/18/24 15:13 Pulse 100 H 12/18/24 15:13 Resp 22 12/18/24 15:13 BP 166/92 H 12/18/24 15:13 Pulse Ox 95 12/18/24 15:13 Time Spent with Patient Time Spent with Patient: 25-34 minutes Time was spent: preparing to see the patient(eg.review tests), obtaining and/or reviewing separately otained hiistory, ordering medications,tests, procedures, referring, communicating with other health hearing care practitioner, indepentently interpreting results, counseling the patient and care coordination
[2024-12-18] MEDS: Docusate Sodium 100 MG CAP PO ×2 (16:10→20:25)
--- NOTE | 2024-12-18 17:04 | PDOC.CMPRO ---
Date of service: 12/18/24 Time of Service: 17:04 Care Management Progress Note Progress Note Text Progress Note Text: Bryan was up in the bedside chair when CM met with him today. He was very pleasant with CM. He stated that he is still not feeling great, but that his pain level has improved. Bryan denied any community needs, he is independent in the community. Discharge Plan: Anticipate Bryan will return home when medically cleared, with no new services. His S/O will drive him home via private vehicle when ready. He will follow up with his PCP and continue per his discharge plan of care. CM will continue to follow. Social Determinants of Health Screening Social Determinants of health last assessed in clinic: 12/18/24 Will the Patient Participate in the Screening?: Yes Do you worry about having a steady place to live?: yes What is your living situation today?: I have housing today, but am worried about losing it Problems where you live: no known problems In the past 12 months, have you had to go without electric, gas, oil or water in your home?: no 1. Within the past 12 months, we worried whether our food would run out before we got money to buy more.: Don't know/refused 2. Within the past 12 months, the food we bought just didn't last and we didn't have money to get more.: Don't know/refused Has lack of transportation kept you from medical appointments or from doing things needed for daily living?: no Has anyone in your life made you feel unsafe or unsupported?: no How hard is it for you to pay for the very basics like food, housing, medical care, and heating? Would you say it is:: Not hard at all Do you want help finding or keeping work or a job?: I do not need or want help If for any reason you need help with day-to-day activities such as bathing, preparing meals, shopping, managing finances, etc., do you get the help you need?: I don?t need any help How often do you feel lonely or isolated from those around you?: Never Do you speak a language other than Armenian at home?: No Does the patient want assistance with any of the above?: No Health Related Social Needs Health related social needs: housing instability, housed, with risk of homelessness (Z59.811) Health related social needs details: No needs currently
[2024-12-18] MEDS: Enoxaparin 40 MG/0.4 ML SYR SC (18:08)
[2024-12-18] MEDS: cefTRIAXone 1 GM/50 ML BAG IVPB (20:25)
[2024-12-18] MEDS: Normal Saline Flush 10 ML SYR IVP (20:26)
[2024-12-18 20:37] VITALS: BP 130/85; PULSE 93; RESP 22; TEMP 37.1; O2SAT 95
[2024-12-18] MEDS: Normal Saline 1,000 ML 125 ML IV (22:00)
[2024-12-19] MEDS: HYDROmorphone 2 MG/ML SYR 1 MG IVP ×3 (00:33→21:32)
[2024-12-19 00:51] VITALS: BP 136/91; PULSE 91; RESP 20; TEMP 37; O2SAT 97
[2024-12-19] MEDS: metroNIDAZOLE 500 MG/100 ML BAG 100 MG IVPB ×4 (01:39→19:55)
[2024-12-19 05:36] VITALS: BP 131/77; PULSE 93; RESP 22; TEMP 36.9; O2SAT 95
[2024-12-19] MEDS: Normal Saline 1,000 ML 125 ML IV ×3 (06:28→22:29)
--- NOTE | 2024-12-19 07:41 | W.PM.PROGNOT ---
Date of Service Date of service: 12/19/24 Time of Service: 07:41 Assessment and Plan Assessment and plan (1) Sigmoid diverticulitis: Status: Acute Assessment and plan: Improving on rocephin and flagyl. Not tolerating clear liquids yet, he will continue with sips as tolerated. Small BM this morning, with great bowel sounds on exam. He will continue with ambulation and activity as tolerated Awaiting AM labs (2) SBO (small bowel obstruction): Status: Acute Assessment and plan: Passing minimal flatus, improving slowly but not resolved. Diverticulitis likely resulted in inflammatory change that caused SBO. As diverticulitis improves, SBO improves. No need for NG tube, awaiting more consistent bowel function and tolerance of oral intake before advancing diet. Pt seen and examined, Dianne Balderrama's note reviewed. Agree with her assessment and plan. Slow progression through his diverticulitis and low grade sbo. Continue clears. Subjective Subjective Interval history since last seen: Bryan is feeling slightly better today. He states he had a small BM this morning. Denies any nausea or vomiting. Exam Const General: cooperative, healthy appearing and comfortable Orientation: alert and oriented x3 GI Inspection: distended Palpation: soft, no guarding and tender Auscultation: normal bowel sounds Objective Last Vital Signs Temp 36.9 C 12/19/24 05:36 Pulse 93 H 12/19/24 05:36 Resp 22 12/19/24 05:36 BP 131/77 12/19/24 05:36 Pulse Ox 95 12/19/24 05:36 Time Spent with Patient Time Spent with Patient: <25 minutes Time was spent: preparing to see the patient(eg.review tests), obtaining and/or reviewing separately otained hiistory, indepentently interpreting results and counseling the patient
[2024-12-19] MEDS: Polyethylene Glycol 3350 17 GM PACKET PO (08:38)
[2024-12-19] MEDS: Normal Saline Flush 10 ML SYR IVP ×3 (08:39→19:55)
[2024-12-19] MEDS: Docusate Sodium 100 MG CAP PO ×3 (08:39→19:54)
[2024-12-19] MEDS: Acetaminophen 325 MG TAB 650 MG PO ×2 (10:33→16:13)
[2024-12-19 10:58] VITALS: BP 150/90; PULSE 94; RESP 16; TEMP 36.7; O2SAT 96
[2024-12-19 15:24] VITALS: BP 151/95; PULSE 94; RESP 16; TEMP 36.7; O2SAT 95
--- NOTE | 2024-12-19 15:53 | PDOC.CMPRO ---
Date of service: 12/19/24 Time of Service: 15:53 Care Management Progress Note Progress Note Text Progress Note Text: Bryan was lying in bed when CM met with him today. He looked better today than he did yesterday, and stated that he is feeling a little better, but does not want to push it yet by advancing his diet. He did have a small BM this morning, but he is still not quite right. He was asking for some pain medication, which was passed on to his nurse. Discharge Potential Discharge Needs: PCP F/U Appt and Surgical F/U Appt Anticipated Barriers to Discharge: None Identified Patient/Family Education Needs: Review discharge instructions, discuss Ask Me Three Transportation: Private vehicle Plan: Anticipate Bryan will return home when medically cleared, with no new services. He will f/u with his PCP and likely the surgeon. His S/O will drive him home via private vehicle when ready. He will follow up with his PCP and continue per his discharge plan of care. CM will continue to follow. Social Determinants of Health Screening Social Determinants of health last assessed in clinic: 12/19/24 Will the Patient Participate in the Screening?: Yes Do you worry about having a steady place to live?: yes What is your living situation today?: I have housing today, but am worried about losing it Problems where you live: no known problems In the past 12 months, have you had to go without electric, gas, oil or water in your home?: no 1. Within the past 12 months, we worried whether our food would run out before we got money to buy more.: Don't know/refused 2. Within the past 12 months, the food we bought just didn't last and we didn't have money to get more.: Don't know/refused Has lack of transportation kept you from medical appointments or from doing things needed for daily living?: no Has anyone in your life made you feel unsafe or unsupported?: no How hard is it for you to pay for the very basics like food, housing, medical care, and heating? Would you say it is:: Not hard at all Do you want help finding or keeping work or a job?: I do not need or want help If for any reason you need help with day-to-day activities such as bathing, preparing meals, shopping, managing finances, etc., do you get the help you need?: I don?t need any help How often do you feel lonely or isolated from those around you?: Never Do you speak a language other than Slovenian at home?: No Does the patient want assistance with any of the above?: No Health Related Social Needs Health related social needs: housing instability, housed, with risk of homelessness (Z59.811) Health related social needs details: No needs currently
--- NOTE | 2024-12-19 16:50 | W.PM.PROGNOT ---
Date of Service Date of service: 12/19/24 Time of Service: 16:50 Assessment and Plan Assessment and plan (1) Sigmoid diverticulitis: Status: Acute Assessment and plan: - As seen on CT abdomen pelvis - Without elevated white cell count, or signs of perforation, may be primary cause of partial/early SBO as noted below - Started on ceftriaxone and Flagyl IV, will continue 12/18/24 cw conservative management (2) SBO (small bowel obstruction): Status: Acute Assessment and plan: - Again, as seen on CT abdomen pelvis as noted above - May be secondary to diverticulitis as noted above - Given the patient is without nausea or vomiting, NG tube not been placed at this time as discussed with general surgery - N.p.o. - Has caused significant abdominal pain is received IV morphine in the emergency department - Will give 1 mg IV Dilaudid every 4 hours as needed for pain - If patient does develop worsening abdominal pain, nausea or vomiting will place NG tube and repeat discussed with general surgery 12/19/24 considering repeat scan in am (3) HTN (hypertension): Assessment and plan: - Hold home p.o. amlodipine - Monitor blood pressure and give IV antihypertensive if needed Subjective Subjective Interval history since last seen: pt seen and examined this afternoon. Still with some anorexia Exam Narrative Exam Narrative: HEENT-NCAT MMM EOMI PERRLA NECK-NO LAD NO JVD CV-RRR NO MRG PULM-CTAB NO AMU ABD-BS PRESENT BUT DIMINISHED EXT-NO CCE BILA Objective Last Vital Signs Temp 36.7 C 12/19/24 15:24 Pulse 94 H 12/19/24 15:24 Resp 16 12/19/24 15:24 BP 151/95 H 12/19/24 15:24 Pulse Ox 95 12/19/24 15:24 Time Spent with Patient Time Spent with Patient: 25-34 minutes Time was spent: preparing to see the patient(eg.review tests), obtaining and/or reviewing separately otained hiistory, ordering medications,tests, procedures, referring, communicating with other health healthcare account manager, indepentently interpreting results, counseling the patient, care coordination and other
[2024-12-19] MEDS: Enoxaparin 40 MG/0.4 ML SYR SC (17:29)
[2024-12-19] MEDS: cefTRIAXone 1 GM/50 ML BAG IVPB (21:32)
[2024-12-19 23:07] VITALS: BP 154/87; PULSE 97; RESP 20; TEMP 37.2; O2SAT 96
--- NOTE | 2024-12-20 | DI.RAD_ITS ---
Exam(s) XR ABDOMEN FLAT UPRIGHT EXAM: 2D digital imaging was performed. CLINICAL HISTORY: ileus vs SBO. COMPARISON: CR XR ABDOMEN FLAT PLATE from 12/17/2024 TECHNIQUE: Supine and upright views of the abdomen was performed. Three images were obtained. FINDINGS: LUNG BASES: There is a small infiltrate in the right lung base. BOWEL GAS PATTERN: There are now mildly dilated loops of small bowel predominantly in the left abdomen with air-fluid levels. There is now a paucity of air seen in the colon. FREE AIR: None. CALCIFICATIONS: No radiopaque calcifications. OSSEOUS STRUCTURES: There is a right convex lumbar scoliosis. The patient has a left hip prosthesis. OTHER FINDINGS: None. IMPRESSION: 1. Mildly dilated loops of bowel with air-fluid level seen on the upright views. There is also now a paucity of air seen in the colon. Early small bowel obstruction versus ileus. 2. Question of a developing infiltrate in the right lung base. DATA REPOSITORY: RADIATION DOSE DELIVERED:
[2024-12-20] MEDS: metroNIDAZOLE 500 MG/100 ML BAG 100 MG IVPB ×4 (01:37→19:34)
[2024-12-20 02:12] VITALS: BP 151/97; PULSE 92; RESP 18; TEMP 36.4; O2SAT 95
[2024-12-20] MEDS: Normal Saline 1,000 ML 125 ML IV ×3 (06:12→23:22)
[2024-12-20 07:36] VITALS: BP 147/88; PULSE 91; RESP 14; TEMP 37.6; O2SAT 96
[2024-12-20] MEDS: Docusate Sodium 100 MG CAP PO ×3 (08:00→19:34)
[2024-12-20] MEDS: Polyethylene Glycol 3350 17 GM PACKET PO (08:00)
[2024-12-20] MEDS: Acetaminophen 325 MG TAB 650 MG PO (08:00)
[2024-12-20] MEDS: Normal Saline Flush 10 ML SYR IVP ×4 (08:01→19:35)
--- NOTE | 2024-12-20 09:49 | PGE_ITS ---
Date of Service Date of service: 12/20/24 Time of Service: 09:49 Assessment and Plan Assessment and plan (1) Sigmoid diverticulitis: Status: Acute Assessment and plan: Continue rocephin and flagyl. Not tolerating clear liquids yet, he will continue with sips as tolerated. Reports passing only small amounts of flatus since yesterday. Abdomen is mildly distended, however non-tender with palpation. No signs of peritonitis. He will continue with ambulation and activity as tolerated. Will order CBC and CMP. Physician attestation - Agree with PA assessment. No significant return of bowel function yet. If patient starts vomiting, I told him we should put an NGT down. He is otherwise stable. White blood cell count within normal limits, no fevers, labs fairly unremarkable. I think reasonable to continue current management for another day. Will obtain abdominal x-ray this afternoon. If he has any acute changes, or no improvement by tomorrow, most likely repeat his CT scan tomorrow. I have started daily PPI IV. I have discussed with hospitalist. Will continue to follow. (2) SBO (small bowel obstruction): Status: Acute Subjective Subjective Interval history since last seen: Bryan continues to be struggling with tolerating clear liquid diet. He states that he is nauseous and feels like these items are sitting in his stomach, not moving. He denies passing any flatus or BMs. He is concerned and feels that he is not making any progress or improvement. Exam Const General: cooperative, healthy appearing and comfortable Orientation: alert and oriented x3 Resp Effort & Inspection: normal respiratory effort, no audible wheezes and no cough GI Inspection: normal to inspection Palpation: firm, no guarding and nontender Auscultation: normal bowel sounds Objective Last Vital Signs Temp 37.6 C H 12/20/24 07:36 Pulse 91 H 12/20/24 07:36 Resp 14 12/20/24 07:36 BP 147/88 H 12/20/24 07:36 Pulse Ox 96 12/20/24 07:36 Time Spent with Patient Time Spent with Patient: 25-34 minutes Time was spent: preparing to see the patient(eg.review tests), obtaining and/or reviewing separately otained hiistory, ordering medications,tests, procedures, referring, communicating with other health healthcare business analyst, indepentently interpreting results and counseling the patient
[2024-12-20 10:25] LABS: Abs Immature Grans 0.01 10^3/uL (0.0-0.06); HCT 33.7 % (40.0-50.0); HGB 11.1 g/dL (13.5-17.5); Immature Grans % 0.2 %; MCH 30.4 pg (27.0-33.0); MCHC 32.9 % (32.0-36.0); MCV 92 fL (80-95); MPV 12.0 fL (8.0-11.0); Platelet Count 127 10^3/uL (130-400); RBC 3.65 10^6/uL (4.36-5.78); RDW 14.1 % (11.8-14.1); RDW-SD 47.8 fL; WBC 6.44 10^3/uL (4.4-10.8)
[2024-12-20 10:53] LABS: ALT 14 U/L (16-63); AST 15 U/L (15-37); Albumin 2.7 g/dL (3.4-5.0); Alkaline Phosphatase 60 U/L (46-116); Anion Gap 10.7 mmol/L (3-11); BUN 25 mg/dL (7-18); Bilirubin, Total 0.3 mg/dL (0.2-1.0); CO2 24.3 mmol/L (21.0-32.0); Calcium 8.3 mg/dL (8.5-10.1); Chloride 110 mmol/L (98-107); Estimated GFR 90.74 (mL/min/1.73m2); Glucose 113 mg/dL (74-106); Potassium 3.7 mmol/L (3.5-5.1); Sodium 145 mmol/L (136-145); Total Protein 5.7 g/dL (6.4-8.2)
[2024-12-20] MEDS: HYDROmorphone 2 MG/ML SYR 1 MG IVP ×3 (11:25→20:04)
[2024-12-20 11:32] VITALS: BP 142/82; PULSE 85; RESP 15; TEMP 37; O2SAT 95
--- NOTE | 2024-12-20 13:11 | PDOC.CMPRO ---
Date of service: 12/20/24 Time of Service: 13:11 Care Management Progress Note Progress Note Text Progress Note Text: Bryan was lying in bed when CM met with him today. He was very pleasant with CM, and we had a few laughs. Bryan informed CM that he lives off grid, and likes it that way. He is currently working on his home improvements. He is quite handy. 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 Bryan is still on a clear liquid diet, and having trouble tolerating it. He is still receiving IV hydromorphone. Bryan is becoming a little discouraged by his lack of progress, but remains pleasant with CM and staff. Discharge Potential Discharge Needs: PCP F/U Appt and Surgical F/U Appt Anticipated Barriers to Discharge: None Identified Patient/Family Education Needs: Review discharge instructions, discuss Ask Me Three Transportation: Private vehicle Plan: Anticipate Bryan will return home when medically cleared, with no new services. He will f/u with his PCP and likely the surgeon. His S/O will drive him home via private vehicle when ready. He will follow up with his PCP and continue per his discharge plan of care. CM will continue to follow. Social Determinants of Health Screening Social Determinants of health last assessed in clinic: 12/20/24 Will the Patient Participate in the Screening?: Yes Do you worry about having a steady place to live?: yes What is your living situation today?: I have housing today, but am worried about losing it Problems where you live: no known problems In the past 12 months, have you had to go without electric, gas, oil or water in your home?: no 1. Within the past 12 months, we worried whether our food would run out before we got money to buy more.: Don't know/refused 2. Within the past 12 months, the food we bought just didn't last and we didn't have money to get more.: Don't know/refused Has lack of transportation kept you from medical appointments or from doing things needed for daily living?: no Has anyone in your life made you feel unsafe or unsupported?: no How hard is it for you to pay for the very basics like food, housing, medical care, and heating? Would you say it is:: Not hard at all Do you want help finding or keeping work or a job?: I do not need or want help If for any reason you need help with day-to-day activities such as bathing, preparing meals, shopping, managing finances, etc., do you get the help you need?: I don?t need any help How often do you feel lonely or isolated from those around you?: Never Do you speak a language other than Guamanian at home?: No Does the patient want assistance with any of the above?: No Health Related Social Needs Health related social needs: housing instability, housed, with risk of homelessness (Z59.811) Health related social needs details: No needs currently
[2024-12-20] MEDS: Pantoprazole 40 MG VIAL IVP (15:10)
--- NOTE | 2024-12-20 15:10 | CHAPLAIN ---
Bryan was resting in bed when I visited. He told me that he has a growth in his throat and the hospitalist is working staff at [facility] to coordinate his care. He said that most of his family is scattered, but Care Management notes show he has a significant other, Sully, with whom he lives in [place]. He's not eaten a while he said, so he's hungry. I explained my role and offered support.
[2024-12-20 16:26] VITALS: BP 137/90; PULSE 89; RESP 18; TEMP 36.8; O2SAT 99
--- NOTE | 2024-12-20 16:41 | W.PM.PROGNOT ---
Date of Service Date of service: 12/20/24 Time of Service: 16:41 Assessment and Plan Assessment and plan (1) Sigmoid diverticulitis: Status: Acute Assessment and plan: roni torres and malik. Advance diet as tolerated (2) SBO (small bowel obstruction): Status: Acute Assessment and plan: consider repeat imaging in the am per GS consult Subjective Subjective Interval history since last seen: pt seen and examined this pm. POC d/w personal secretary General Surgeon Exam Narrative Exam Narrative: resting comfortably no respiratory distress ncat Objective Last Vital Signs Temp 36.8 C 12/20/24 16:26 Pulse 89 12/20/24 16:26 Resp 18 12/20/24 16:26 BP 137/90 12/20/24 16:26 Pulse Ox 99 12/20/24 16:26 Laboratory Results - last 24 hr 12/20/24 10:14 WBC 6.44 RBC 3.65 L Hgb 11.1 L Hct 33.7 L MCV 92 MCH 30.4 MCHC 32.9 RDW 14.1 Plt Count 127 L MPV 12.0 H Immature Gran % 0.2 Neutrophils % 76.7 Lymphocytes % 10.4 Monocytes % 11.6 Eosinophils % 0.6 Basophils % 0.5 Nucleated RBC % 0.0 Absolute Neutrophils 4.94 Absolute Lymphocytes 0.67 L Absolute Monocytes 0.75 Absolute Eosinophils 0.04 Absolute Basophils 0.03 Sodium 145 Potassium 3.7 Chloride 110 H Carbon Dioxide 24.3 Anion Gap 10.7 BUN 25 H Creatinine 0.9 Est GFR (CKD-EPI 2020) 90.74 Glucose 113 H Calcium 8.3 L Total Bilirubin 0.3 AST 15 ALT 14 L Alkaline Phosphatase 60 Total Protein 5.7 L Albumin 2.7 L Time Spent with Patient Time Spent with Patient: <25 minutes Time was spent: preparing to see the patient(eg.review tests), obtaining and/or reviewing separately otained hiistory, ordering medications,tests, procedures, referring, communicating with other health critical care cns, indepentently interpreting results, counseling the patient and care coordination
[2024-12-20] MEDS: Enoxaparin 40 MG/0.4 ML SYR SC (17:27)
[2024-12-20 19:21] VITALS: BP 143/80; PULSE 77; RESP 18; TEMP 37.1; O2SAT 96
[2024-12-20] MEDS: cefTRIAXone 1 GM/50 ML BAG IVPB (21:11)
[2024-12-20 22:58] VITALS: BP 125/73; PULSE 85; RESP 20; TEMP 37; O2SAT 93
--- NOTE | 2024-12-21 | DI.CT_ITS ---
Exam(s) CT ABDOMEN PELVIS W EXAM: CT ABDOMEN PELVIS W CLINICAL HISTORY: sbo TECHNIQUE: Imaging Protocol: Axial computed tomography images with coronal and sagittal reformatted images were created and reviewed. CONTRAST MATERIAL: Intravenous: Omnipaque 350 Contrast volume:75 mL Oral: Yes COMPARISON: CT CT ABDOMEN PELVIS W from 12/17/2024 FINDINGS: ABDOMEN: Lung Bases: There are new small bilateral pleural effusions and subjacent infiltrates which may represent atelectasis or pneumonia. There is a large hiatal hernia present. There is an infiltrate seen in the right middle lobe. Liver: Normal density. No measurable mass. Portal, Superior Mesenteric, and Splenic Veins: Unremarkable. Gallbladder and Biliary Tract: There are gallstones present. There is no biliary ductal dilatation. Pancreas: Normal density, no abnormal calcifications or inflammatory process. Spleen: Normal. Adrenals: No masses seen. Kidneys: Normal size, contour and axis. No radiodense stones or obstructive uropathy. No masses seen. Abdominal Aorta: Abdominal portion non-dilated. Atherosclerotic calcification is present. Bowel: There is diverticulosis in the colon without evidence of acute diverticulitis. There is no evidence of bowel wall thickening. Oral contrast had been administered. There are dilated loops of small bowel with a transition in the right abdomen. There is a question of a filling defect seen in the small bowel at the level of transition (series 8, image 53. It measures 1.7 x 2.0 cm. There is no oral contrast seen in the distal small bowel and terminal ileum. No contrast is seen in the colon. The patient is status post appendectomy. There is no pneumatosis. The patient has an enteric tube with its tip in good position in the stomach. Peritoneal Cavity: There is a trace amount of perisplenic ascites. No free air. Lymph Nodes: Within normal limits. Bones: Within normal limits for the patient's age. The patient has a left total hip arthroplasty. Soft Tissues: There is a small fat containing umbilical hernia. PELVIS: Bladder: Symmetric distention, no gross wall thickening. Reproductive Organs: Unremarkable as visualized. Lymph Nodes: Within normal limits. Bones: Within normal limits for the patient's age. IMPRESSION: 1. There are again seen findings of a small-bowel obstruction with a transition in the mid right abdomen. There is a question of hypodense filling defect measuring 2 cm x 1.7 cm at the transition. Surgical consult is recommended. 2. Interval development of small bilateral pleural effusions and bilateral basilar infiltrates which may represent aspiration or pneumonia. 3. Development of a small amount of perisplenic ascites. 4. Cholelithiasis. 5. The preliminary [facility] report was reviewed. RADIATION DOSE DELIVERED: 547.91mGy.cm Total DLP DATA REPOSITORY: All CT scans at this facility are submitted to the National Radiology Data Registry (NRDR) Dose Index Registry (DIR) with the [employer] (ACR). RADIATION OPTIMIZATION: All CT scans at this facility use at least one of these dose optimization techniques: automated exposure control; mA and/or kV adjustment per patient size (includes targeted exams where dose is matched to clinical indication); or iterative reconstruction.
[2024-12-21] MEDS: metroNIDAZOLE 500 MG/100 ML BAG 100 MG IVPB ×4 (02:00→20:26)
[2024-12-21] MEDS: HYDROmorphone 2 MG/ML SYR 1 MG IVP ×2 (04:38→09:20)
[2024-12-21 07:35] VITALS: BP 138/87; PULSE 79; RESP 18; TEMP 36.9; O2SAT 95
[2024-12-21] MEDS: Pantoprazole 40 MG VIAL IVP (08:53)
[2024-12-21] MEDS: Docusate Sodium 100 MG CAP PO ×2 (08:53→13:50)
[2024-12-21] MEDS: Normal Saline 1,000 ML 125 ML IV (08:54)
[2024-12-21] MEDS: Normal Saline Flush 10 ML SYR IVP ×2 (08:54→20:29)
[2024-12-21 11:06] VITALS: BP 152/88; PULSE 82; RESP 18; TEMP 36.6; O2SAT 95
--- NOTE | 2024-12-21 11:47 | W.PM.PROGNOT ---
Date of Service Date of service: 12/21/24 Time of Service: 13:09 Assessment and Plan Assessment and plan (1) SBO (small bowel obstruction): Status: Acute Assessment and plan: 74-year-old male who presented with what was felt to be an episode of acute diverticulitis, as well as some distended loops of small bowel on imaging. We assumed his inflammation in the lower abdomen resolved, that his bowel function returned. He seems to have persistent ileus without any further signs of infection. AXR from yesterday shows a few dilated fluid filled loops of small bowel, no air in colon, ileus vs SBO. - cont IVF - cont IV abx - clear liquid diet - labs daily - encourage OOB and ambulation - NGT if vomitting worsens - Encourage patient to avoid Dilaudid and use non narcotic options - consider PICC and TPN, will d/w hospitalist but will likely hold off as patient seems to be tolerating an increased amount of clear liquids today. (2) Sigmoid diverticulitis: Status: Acute Subjective Subjective Interval history since last seen: Patient reports no major changes since yesterday. No significant abdominal pains except when he moves around out to bed he gets that lower pelvic discomfort. He has been using the Dilaudid a couple of times a day. We did discuss that narcotics can slow down gut function. He was unaware of this. He denies nausea vomiting this morning. He reports that he did not make himself vomit overnight and brought up maybe 1 or 2 capfuls of bilious fluid. He had a little bit of relief after that. He has not passed any significant flatus or had a bowel movement for the last day or 2. He did feel some gurgling and rumbling in his gut this morning and he has had about 500 mL of apple juice and water this morning that he is kept down. WBC within normal limits. Electrolytes fairly stable. Potassium a bit low at 3.4 this morning. Exam Narrative Exam Narrative: General?lying in bed with head of bed elevated, no apparent distress HEENT?normocephalic, atraumatic. Sclera anicteric. Mucous membranes moist. Neck?supple, no masses Respiratory?unlabored, no use of accessory muscles, speaks in full sentences Abdomen?remains moderately distended, some tympany to percussion in the upper abdomen, minimally tender to palpation across the lower abdomen, no guarding, no rebound tenderness Extremities?moves all extremities, ambulates independently Neuro-? grossly intact Objective Last Vital Signs Temp 36.6 C 12/21/24 11:06 Pulse 82 12/21/24 11:06 Resp 18 12/21/24 11:06 BP 152/88 H 12/21/24 11:06 Pulse Ox 95 12/21/24 11:06 Time Spent with Patient Time Spent with Patient: 25-34 minutes Time was spent: preparing to see the patient(eg.review tests), ordering medications,tests, procedures, indepentently interpreting results, counseling the patient and care coordination
[2024-12-21 12:02] LABS: Abs Immature Grans 0.02 10^3/uL (0.0-0.06); HCT 35.2 % (40.0-50.0); HGB 11.5 g/dL (13.5-17.5); Immature Grans % 0.3 %; MCH 30.5 pg (27.0-33.0); MCHC 32.7 % (32.0-36.0); MCV 93 fL (80-95); MPV 12.2 fL (8.0-11.0); Platelet Count 136 10^3/uL (130-400); RBC 3.77 10^6/uL (4.36-5.78); RDW 14.0 % (11.8-14.1); RDW-SD 47.9 fL; WBC 6.65 10^3/uL (4.4-10.8)
[2024-12-21 12:20] LABS: ALT 11 U/L (16-63); AST 14 U/L (15-37); Albumin 2.6 g/dL (3.4-5.0); Alkaline Phosphatase 61 U/L (46-116); Anion Gap 11.7 mmol/L (3-11); BUN 20 mg/dL (7-18); Bilirubin, Total 0.4 mg/dL (0.2-1.0); CO2 23.3 mmol/L (21.0-32.0); Calcium 8.2 mg/dL (8.5-10.1); Chloride 110 mmol/L (98-107); Estimated GFR 90.74 (mL/min/1.73m2); Glucose 96 mg/dL (74-106); Potassium 3.4 mmol/L (3.5-5.1); Sodium 145 mmol/L (136-145); Total Protein 5.7 g/dL (6.4-8.2)
[2024-12-21] MEDS: POTASSIUM CHLORIDE 20 MEQ/100 ML BAG 50 MEQ IV_INF (13:50)
--- NOTE | 2024-12-21 14:04 | PGE_ITS ---
Date of Service Date of service: 12/21/24 Time of Service: 14:04 Assessment and Plan Assessment and plan (1) Sigmoid diverticulitis: Status: Acute Assessment and plan: cw brian and amlik. Advance diet as tolerated (2) SBO (small bowel obstruction): Status: Acute Assessment and plan: consider repeat imaging in the am per GS consult 12/21/24 Pt with some improvement in his appetite and tolerance. Slow but fairly steady progression. Subjective Subjective Interval history since last seen: resting comfortably. POC d/w GS. Exam Narrative Exam Narrative: resting comfortably no respiratory distress ncat Objective Last Vital Signs Temp 36.6 C 12/21/24 11:06 Pulse 82 12/21/24 11:06 Resp 18 12/21/24 11:06 BP 152/88 H 12/21/24 11:06 Pulse Ox 95 12/21/24 11:06 Laboratory Results - last 24 hr 12/21/24 11:53 WBC 6.65 RBC 3.77 L Hgb 11.5 L Hct 35.2 L MCV 93 MCH 30.5 MCHC 32.7 RDW 14.0 Plt Count 136 MPV 12.2 H Immature Gran % 0.3 Neutrophils % 74.1 Lymphocytes % 12.0 Monocytes % 10.7 Eosinophils % 2.3 Basophils % 0.6 Nucleated RBC % 0.0 Absolute Neutrophils 4.93 Absolute Lymphocytes 0.80 L Absolute Monocytes 0.71 Absolute Eosinophils 0.15 Absolute Basophils 0.04 Sodium 145 Potassium 3.4 L Chloride 110 H Carbon Dioxide 23.3 Anion Gap 11.7 H BUN 20 H Creatinine 0.9 Est GFR (CKD-EPI 2020) 90.74 Glucose 96 Calcium 8.2 L Total Bilirubin 0.4 AST 14 L ALT 11 L Alkaline Phosphatase 61 Total Protein 5.7 L Albumin 2.6 L Time Spent with Patient Time Spent with Patient: <25 minutes Time was spent: preparing to see the patient(eg.review tests), obtaining and/or reviewing separately otained hiistory, ordering medications,tests, procedures, referring, communicating with other health home health care social worker, indepentently in terpreting results, counseling the patient and care coordination
[2024-12-21 14:43] VITALS: BP 139/88; PULSE 86; RESP 18; TEMP 37; O2SAT 96
[2024-12-21] MEDS: Ketorolac 15 MG/ML VIAL IVP ×2 (15:19→21:48)
[2024-12-21 16:41] VITALS: BP 155/99; PULSE 114; RESP 16; TEMP 36.1; O2SAT 96
[2024-12-21] MEDS: Enoxaparin 40 MG/0.4 ML SYR SC (17:25)
--- NOTE | 2024-12-21 18:15 | DI.RAD_ITS ---
Exam(s) XR PORTABLE CHEST AP POST LINE EXAM: XR PORTABLE CHEST AP POST LINE CLINICAL HISTORY: ng tube place TECHNIQUE: 2D digital imaging was performed of the chest. Two images were obtained. AP views were obtained. COMPARISON: CT CT ABDOMEN PELVIS W from 12/17/2024 CR XR ABDOMEN FLAT UPRIGHT from 12/20/2024 FINDINGS: There has been interval placement of an enteric tube. The tube is coiled in the inferior mediastinum. The tip is directed cephalad. The patient has a known hiatal hernia. The tube may be collected within the hiatal hernia above the hemidiaphragm. The patient's enteric tube should be repositioned. MEDIASTINUM: Normal. HEART: Normal. PULMONARY VASCULATURE: Normal. LUNGS: There is a new infiltrate in the right lung base. There is also small infiltrate seen in the left lung base. PLEURAL SPACE: No pleural effusion or pneumothorax. BONE:Within normal limits for the patient's age. OTHER FINDINGS:Normal. IMPRESSION: 1. The enteric tube is coiled in the inferior mediastinum. The patient has a known hiatal hernia. The tube is likely coiled within the hiatal hernia above the hemidiaphragm. The patient's enteric tube needs to be repositioned. 2. Bilateral basilar infiltrates, right greater than left. DATA REPOSITORY: RADIATION DOSE DELIVERED:
--- NOTE | 2024-12-21 18:45 | DI.RAD_ITS ---
Exam(s) XR PORTABLE CHEST AP EXAM: XR PORTABLE CHEST AP CLINICAL HISTORY: ng tube TECHNIQUE: 2D digital imaging was performed of the chest. One image was obtained. An AP view was obtained. COMPARISON: CR XR PORTABLE CHEST AP POST LINE from 12/21/2024 FINDINGS: The enteric tube has been repositioned. There is a small curve in the distal enteric tube with the tip directed cephalad. The side port appears to lie at the gastroesophageal junction. The enteric tube should be repositioned to ensure a stomach location. MEDIASTINUM: Normal. HEART: Normal. PULMONARY VASCULATURE: Normal. LUNGS: Bilateral basilar infiltrates, right greater than left. PLEURAL SPACE: No pleural effusion or pneumothorax. BONE:Within normal limits for the patient's age. OTHER FINDINGS:Normal. IMPRESSION: 1. The enteric tube should be advanced further into the stomach. There appears to be a curve in the distal aspect of the enteric tube. 2. Bilateral basilar infiltrates, right greater than left. DATA REPOSITORY: RADIATION DOSE DELIVERED:
--- NOTE | 2024-12-21 19:00 | DI.RAD_ITS ---
Exam(s) XR PORTABLE CHEST AP EXAM: XR PORTABLE CHEST AP CLINICAL HISTORY: ng tube TECHNIQUE: 2D digital imaging was performed of the chest. Two images were obtained. AP views were obtained. COMPARISON: CR XR PORTABLE CHEST AP from 12/21/2024 FINDINGS: The enteric tube has been repositioned. The tip and side-port are beneath the hemidiaphragm in good position in the stomach. MEDIASTINUM: Normal. HEART: Normal. PULMONARY VASCULATURE: Normal. LUNGS: There is again seen a right basilar infiltrate. PLEURAL SPACE: No pleural effusion or pneumothorax. BONE:Within normal limits for the patient's age. OTHER FINDINGS:Normal. IMPRESSION: The enteric tube is in good position with its tip below the hemidiaphragm in the stomach. DATA REPOSITORY: RADIATION DOSE DELIVERED:
[2024-12-21 20:28] VITALS: BP 165/85; PULSE 83; RESP 20; TEMP 37.4; O2SAT 96
[2024-12-21] MEDS: Gastrografin 120 ML BTL PO (21:35)
[2024-12-21] MEDS: cefTRIAXone 1 GM/50 ML BAG IVPB (21:49)
[2024-12-21 22:53] VITALS: BP 168/99; PULSE 85; RESP 18; TEMP 37; O2SAT 96
[2024-12-22] VITALS (14 sets, daily range): BP systolic 105–165; BP diastolic 57–103; PULSE 78–90; RESP 15–22; TEMP 35.3–37.1; O2SAT 91–96; BMI 26.9
[2024-12-22] MEDS: Omnipaque 350 MG/ML 100 ML BTL IJ (00:47)
--- NOTE | 2024-12-22 01:35 | DI.VRAD_ITS ---
Addendum created by Ricardo Cm MD on 12/22/2024 1:45:13 AM EDT: This case was discussed personally with DR GREEN at 1:44 AM EDT on 12/22/2024. Initial report created on 12/22/2024 1:35:22 AM EDT: PROCEDURE INFORMATION: Exam: CT Abdomen And Pelvis With Contrast Exam date and time: 12/22/2024 12:36 AM Age: 74 years old Clinical indication: Other: Sbo TECHNIQUE: Imaging protocol: Computed tomography of the abdomen and pelvis with contrast. Radiation optimization: All CT scans at this facility use at least one of these dose optimization techniques: automated exposure control; mA and/or kV adjustment per patient size (includes targeted exams where dose is matched to clinical indication); or iterative reconstruction. Contrast material: OMNIPAQUE 350; Contrast volume: 75 ml; Contrast route: INTRAVENOUS (IV); Other contrast: Oral, Gastrografin, 120; COMPARISON: CT ABDOMEN PELVIS W 12/17/2024 12:43 AM FINDINGS: Tubes, catheters and devices: Nasogastric/orogastric catheter in-situ with its tip in the gastric fundus. Lungs: Dependent atelectasis, more prominent on the right. Pleural spaces: Small bilateral pleural effusions, new since the recent prior exam from December 17, 2024. Patchy micronodular densities in the right lower lung zone suspicious for aspiration, also new since the recent prior exam. Diaphragm: Large hiatal hernia, 5.7 cm x 8.9 cm maximum axial dimension. Liver: Normal appearing liver. Gallbladder and biliary ducts: Gallbladder partially decompressed. Calcified gallstones. No biliary dilatation. Pancreas: Normal appearing pancreas. Spleen: Normal appearing spleen. Adrenal glands: Normal appearing adrenal glands. Kidneys and ureters: Normal appearing kidneys. No hydronephrosis. Stomach and bowel: Stomach prominently distended with oral contrast and gas. Prominent dilatation of contrast filled small bowel loops throughout the upper abdomen with abrupt caliber transition in the right mid abdomen on images 47-62 of series 8 and collapse of the downstream small bowel in keeping with a small bowel obstruction. Suggestion of a 12 mm hypoattenuating filling defect at the point of caliber transition, image 53 of series 8, not well evaluated, uncertain finding. No significant oral contrast beyond the point of caliber transition. Colon well evacuated and collapsed. Sigmoid diverticulosis but no evidence of diverticulitis or colitis. Appendix: Appendix not identified. Surgical material at the cecal apex suggesting a prior appendectomy. Correlation with surgical history recommended. Intraperitoneal space: Small amount of ascites in the left upper quadrant and in the pelvis. No free air. Vasculature: Normal caliber abdominal aorta. Lymph nodes: No pathologically enlarged mesenteric, retroperitoneal, or pelvic sidewall lymph nodes. Urinary bladder: Urinary bladder partially obscured by artifact but grossly unremarkable, as seen. Reproductive: Prostate gland and seminal vesicles partially obscured by artifact and not well evaluated but grossly normal in size. Bones/joints: Prior left hip arthroplasty with streak artifact created by the metallic prosthesis partially obscuring the lower pelvis. No acute fracture seen among the bones of the abdomen or pelvis. 1.2 cm x 1.0 cm well-defined sclerotic bone lesion in the right ilium on image 80 of series 8, not well characterized by today's exam but with margins suggesting a slow pattern of growth, possibly a bone island. Spinal degenerative change with discogenic degeneration, anterior osteophytes, and facet arthrosis at multiple levels. Apparent partial fusion across the L2-L3 disc space. Soft tissues: Small foci of subcutaneous gas in the anterior abdominal wall adjacent to the umbilicus, nonspecific. IMPRESSION: 1. Small bowel obstruction with an abrupt point of caliber transition in the right mid abdomen. Suggestion of a 12 mm hypoattenuating filling defect at the point of caliber transition on image 53 of series 8, uncertain finding. Surgery consultation recommended. No significant oral contrast material downstream to the point of caliber transition. 2. Prominent gastric distention despite the presence of a nasogastric/orogastric catheter in-situ with its tip at the gastric antrum. 3. Patchy micronodular densities at the right lung base suspicious for aspiration, new since the prior exam. 4. Small bilateral pleural effusions, new since the prior exam. 5. Small amount of ascites, new since the prior exam. 6. Additional findings, as above. Dictated and Authenticated by: Ricardo Cm MD. Orderin John Hensley MD
[2024-12-22] MEDS: metroNIDAZOLE 500 MG/100 ML BAG 100 MG IVPB ×3 (02:14→14:11)
[2024-12-22] MEDS: Ondansetron 4 MG/2 ML VIAL IVP (03:19)
[2024-12-22] MEDS: Normal Saline 1,000 ML 125 ML IV ×2 (03:19→14:12)
[2024-12-22 07:20] LABS: Abs Immature Grans 0.02 10^3/uL (0.0-0.06); HCT 37.0 % (40.0-50.0); HGB 12.5 g/dL (13.5-17.5); Immature Grans % 0.3 %; MCH 30.6 pg (27.0-33.0); MCHC 33.8 % (32.0-36.0); MCV 91 fL (80-95); MPV 12.5 fL (8.0-11.0); Platelet Count 174 10^3/uL (130-400); RBC 4.08 10^6/uL (4.36-5.78); RDW 13.9 % (11.8-14.1); RDW-SD 46.3 fL; WBC 7.71 10^3/uL (4.4-10.8)
[2024-12-22 07:30] LABS: ALT 13 U/L (16-63); AST 15 U/L (15-37); Albumin 2.8 g/dL (3.4-5.0); Alkaline Phosphatase 67 U/L (46-116); Anion Gap 15.0 mmol/L (3-11); BUN 21 mg/dL (7-18); Bilirubin, Total 0.4 mg/dL (0.2-1.0); CO2 22.0 mmol/L (21.0-32.0); Calcium 8.7 mg/dL (8.5-10.1); Chloride 109 mmol/L (98-107); Estimated GFR 90.74 (mL/min/1.73m2); Glucose 93 mg/dL (74-106); Potassium 3.5 mmol/L (3.5-5.1); Sodium 146 mmol/L (136-145); Total Protein 6.1 g/dL (6.4-8.2)
[2024-12-22] MEDS: Normal Saline Flush 10 ML SYR IVP ×3 (09:19→21:00)
[2024-12-22] MEDS: Pantoprazole 40 MG VIAL IVP (09:19)
--- NOTE | 2024-12-22 10:42 | PGE_ITS ---
Date of Service Date of service: 12/22/24 Time of Service: 10:42 Assessment and Plan Assessment and plan (1) Sigmoid diverticulitis: Status: Acute Assessment and plan: cw flagyl and rocephin. Advance diet as tolerated (2) SBO (small bowel obstruction): Status: Acute Assessment and plan: consider repeat imaging in the am per GS consult 12/21/24 Pt with some improvement in his appetite and tolerance. Slow but fairly steady progression. 12/22/24 CT abd/pelvis indicates SBO. Plan is for definitive surgical correction this pm (3) HTN (hypertension): Assessment and plan: cw amlodipine Subjective Subjective Interval history since last seen: Pt seen and examined. POC d/w GS as well at the bed side nurse during morning report. Pt denies adverse effects from anesthesia and denies any cardiac disease Exam Narrative Exam Narrative: HEENT-NCAT NG TUBE IN PLACE NECK-NO LAD NO JVD CV-RRR NO MRG PULM-CTAB SNTND ABD-DECREASED BOWEL SOUNDS X4 Objective Last Vital Signs Temp 37.1 C 12/22/24 07:47 Pulse 87 12/22/24 07:47 Resp 18 12/22/24 07:47 BP 151/94 H 12/22/24 07:47 Pulse Ox 93 12/22/24 07:47 Laboratory Results - last 24 hr 12/21/24 12/22/24 12/22/24 11:53 06:00 06:27 WBC 6.65 7.71 RBC 3.77 L 4.08 L Hgb 11.5 L 12.5 L Hct 35.2 L 37.0 L MCV 93 91 MCH 30.5 30.6 MCHC 32.7 33.8 RDW 14.0 13.9 Plt Count 136 174 MPV 12.2 H 12.5 H Immature Gran % 0.3 0.3 Neutrophils % 74.1 78.2 Lymphocytes % 12.0 11.3 Monocytes % 10.7 9.3 Eosinophils % 2.3 0.6 Basophils % 0.6 0.3 Nucleated RBC % 0.0 0.0 Absolute Neutrophils 4.93 6.03 Absolute Lymphocytes 0.80 L 0.87 L Absolute Monocytes 0.71 0.72 Absolute Eosinophils 0.15 0.05 Absolute Basophils 0.04 0.02 Sodium 145 146 H Potassium 3.4 L 3.5 Chloride 110 H 109 H Carbon Dioxide 23.3 22.0 Anion Gap 11.7 H 15.0 H BUN 20 H 21 H Creatinine 0.9 0.9 Est GFR (CKD-EPI 2020) 90.74 90.74 Glucose 96 93 Calcium 8.2 L 8.7 Total Bilirubin 0.4 0.4 AST 14 L 15 ALT 11 L 13 L Alkaline Phosphatase 61 67 Total Protein 5.7 L 6.1 L Albumin 2.6 L 2.8 L Time Spent with Patient Time Spent with Patient: <25 minutes Time was spent: preparing to see the patient(eg.review tests), obtaining and/or reviewing separately otained hiistory, ordering medications,tests, procedures, referring, communicating with other health patient centered care specialist, indepentently interpreting results, counseling the patient and care coordination
--- NOTE | 2024-12-22 10:53 | W.PM.PROGNOT ---
Date of Service Date of service: 12/22/24 Time of Service: 11:51 Assessment and Plan Assessment and plan (1) SBO (small bowel obstruction): Status: Acute Assessment and plan: 74-year-old male who was diagnosed with a question of diverticulitis versus small bowel obstruction. He has clearly declared himself in the last 24 hours to have a small bowel obstruction. Imaging shows no movement of contrast beyond the transition point. I discussed operative intervention with the patient. He is willing to proceed. He is very uncomfortable and wants to have something done. We will get him to the operating room for exploratory laparotomy. We talked about the possibility of small bowel resection, ostomy formation, anastomotic leak, bleeding, infection, amongst other things. He expressed understanding. He has not informed consent. We will proceed to the OR as soon as possible. Subjective Subjective Interval history since last seen: Patient began vomiting yesterday afternoon. We opted to place an NG tube. He has had over 3 L of output. He went for CT scan after introduction of Gastrografin through the NG tube. This shows dilated loops of small bowel up to the right mid abdomen with a clear transition point to decompressed distal small bowel and decompressed colon without any passage of contrast beyond that point. This morning he remains quite uncomfortable, clearly different from 24 hours ago. Vital signs remained stable. Afebrile. WBC within normal limits. Labs otherwise fairly unremarkable. Exam Narrative Exam Narrative: General?lying in bed with head of bed elevated. Appears uncomfortable. NG tube in place with dark green bilious fluid in tube and canister. HEENT?normocephalic, atraumatic. Sclera anicteric. Mucous membranes a bit dry. Wincing when he swallows with tube in place. Neck?supple, no masses Respiratory?unlabored, no use of accessory muscles, speaks in full sentences Abdomen?remains somewhat distended, tympanic to percussion in the upper abdomen, no focal tenderness or guarding, no rebound tenderness. Extremities?moves all extremities, no gross edema neuro-? grossly intact Objective Last Vital Signs Temp 37.1 C 12/22/24 07:47 Pulse 87 12/22/24 07:47 Resp 18 12/22/24 07:47 BP 151/94 H 12/22/24 07:47 Pulse Ox 93 12/22/24 07:47 Laboratory Results - last 24 hr 12/21/24 12/22/24 12/22/24 11:53 06:00 06:27 WBC 6.65 7.71 RBC 3.77 L 4.08 L Hgb 11.5 L 12.5 L Hct 35.2 L 37.0 L MCV 93 91 MCH 30.5 30.6 MCHC 32.7 33.8 RDW 14.0 13.9 Plt Count 136 174 MPV 12.2 H 12.5 H Immature Gran % 0.3 0.3 Neutrophils % 74.1 78.2 Lymphocytes % 12.0 11.3 Monocytes % 10.7 9.3 Eosinophils % 2.3 0.6 Basophils % 0.6 0.3 Nucleated RBC % 0.0 0.0 Absolute Neutrophils 4.93 6.03 Absolute Lymphocytes 0.80 L 0.87 L Absolute Monocytes 0.71 0.72 Absolute Eosinophils 0.15 0.05 Absolute Basophils 0.04 0.02 Sodium 145 146 H Potassium 3.4 L 3.5 Chloride 110 H 109 H Carbon Dioxide 23.3 22.0 Anion Gap 11.7 H 15.0 H BUN 20 H 21 H Creatinine 0.9 0.9 Est GFR (CKD-EPI 2020) 90.74 90.74 Glucose 96 93 Calcium 8.2 L 8.7 Total Bilirubin 0.4 0.4 AST 14 L 15 ALT 11 L 13 L Alkaline Phosphatase 61 67 Total Protein 5.7 L 6.1 L Albumin 2.6 L 2.8 L Time Spent with Patient Time Spent with Patient: 25-34 minutes Time was spent: preparing to see the patient(eg.review tests), obtaining and/or reviewing separately otained hiistory, ordering medications,tests, procedures, referring, communicating with other health neonatal critical care nurse, indepentently interpreting results, counseling the patient and care coordination
[2024-12-22] MEDS: Ketorolac 15 MG/ML VIAL IVP ×2 (11:06→22:40)
--- NOTE | 2024-12-22 11:22 | ANES.PREOP_ITS ---
General Info Date of Service Date Performed: 12/22/24 Height: 5 ft 10 in Weight: 85 kg Body Mass Index (BMI): 26.9 Surgical Procedure: Operation Date: 12/22/24 13:00 Proposed Procedure Side Surgeon p Exploratory Laparotomy Not Applicable Jesse HUGO MD Meds Allergies and Home Medications Allergies Allergy/AdvReac Type Severity Reaction Status Date / Time No Known Allergies Allergy Unverified 12/17/24 00:00 Home Medication ?Medication ?Instructions ?Recorded ibuprofen 600 mg tablet 600 mg PO Q6H PRN 02/22/24 amlodipine 5 mg tablet 5 mg PO DAILY 12/17/24 Current Visit Medications: Current Medications Generic Name Dose Route Start Last Admin Trade Name Freq PRN Reason Stop Dose Admin Acetaminophen 650 mg 12/17/24 02:44 12/20/24 08:00 Acetaminophen 325 Mg Tab PO 650 mg Q4H PRN PRN Administration Diatrizoate Meglum/Diatrizoate Sod 120 ml 12/21/24 19:00 12/21/24 21:35 Gastrografin 120 Ml Btl PO 120 ml DIRECTED WALLY Administration Docusate Sodium 100 mg 12/18/24 14:00 12/22/24 09:20 Docusate Sodium 100 Mg Cap PO Not Given TID WALLY Enoxaparin Sodium 40 mg 12/18/24 18:00 12/21/24 17:25 Enoxaparin 40 Mg/0.4 Ml Syr SC 40 mg Q24H WALLY Administration Hydromorphone HCl 0.5 mg 12/21/24 11:47 Hydromorphone 2 Mg/Ml Syr IVP Q6H PRN PRN Sodium Chloride 1,000 mls @ 125 mls/hr 12/17/24 02:44 12/22/24 03:19 Saline 1000ml Bag IV 125 mls/hr INFUSION WALLY Administration Ceftriaxone Sodium/Dextrose 1 gm in 50 mls @ 100 mls/hr 12/17/24 22:00 12/22/24 02:24 Rocephin IVPB Infused Q24H WALLY Infusion Metronidazole 500 mg in 100 mls @ 100 mls/hr 12/17/24 08:00 12/22/24 10:31 Flagyl IVPB Infused Q6H WALLY Infusion IV Miscellaneous Supplies 1 each 12/17/24 00:15 Iv Access IV DIRECTED WALLY Ibuprofen 800 mg 12/21/24 11:44 Ibuprofen 800 Mg Tab PO TID PRN PRN Ketorolac Tromethamine 15 mg 12/21/24 11:44 12/22/24 11:06 Ketorolac 15 Mg/Ml Vial IVP 12/26/24 11:43 15 mg Q6H PRN PRN Administration Ondansetron HCl 4 mg 12/22/24 02:53 12/22/24 03:19 Ondansetron 4 Mg/2 Ml Vial IVP 4 mg Q6H PRN PRN Administration Pantoprazole Sodium 40 mg 12/21/24 08:30 12/22/24 09:19 Pantoprazole 40 Mg Vial IVP 40 mg DAILY WALLY Administration Polyethylene Glycol 17 gm 12/17/24 02:44 12/20/24 08:00 Polyethylene Glycol 3350 17 Gm Packet PO 17 gm DAILY PRN PRN Administration Constipation Sodium Chloride 0 ml 12/17/24 00:09 12/20/24 15:10 Normal Saline Flush 10 Ml Syr IVP 20 ml PRN PRN Administration Sodium Chloride 0 ml 12/17/24 08:30 12/22/24 09:19 Normal Saline Flush 10 Ml Syr IVP 20 ml BID WALLY Administration Sodium Chloride 0 ml 12/17/24 00:09 Normal Saline 10 Ml Vial IJ DIRECTED PRN Sodium Chloride 50 ml 12/22/24 00:45 Normal Saline - Diluent 50 Ml Vial IJ .FOR DI USE WALLY PFSH Active Problems Active Problems: Problem Status Onset Code Sigmoid diverticulitis Acute K57.32 SBO (small bowel obstruction) Acute K56.609 Medical History Medical History HTN (hypertension) Surgical History Surgical History S/P spinal surgery Status post THR (total hip replacement) S/P appendectomy Tobacco Smoking/Tobacco Use Status: Former Tobacco Use Passive smoking exposure: No Alcohol Alcohol Intake: never Substance Use Substance use: Never Substance use type: does not use Vital Signs and Lab Results Vital Signs Most Recent Vital Signs in EMR: Most Recent Vital Signs Temp Pulse Resp BP Pulse Ox 37.1 C 87 18 151/94 H 93 12/22/24 07:47 12/22/24 07:47 12/22/24 07:47 12/22/24 07:47 12/22/24 07:47 Lab Results 12/22/24 06:27 12/22/24 06:00 Complete Blood Count: 2 WBC, (4.4-10.8) 7.71 10^3/uL Today, 06:27 RBC, (4.36-5.78) 4.08 10^6/uL L Today, 06:27 Hgb, (13.5-17.5) 12.5 g/dL L Today, 06:27 Hct, (40.0-50.0) 37.0 % L Today, 06:27 Plt Count, (130-400) 174 10^3/uL Today, 06:27 VBG Lactate, (<or=2.0) 0.7 mmol/L 12/17/24, 00:05 Complete Metabolic Panel: 2 Sodium, (136-145) 146 mmol/L H Today, 06:00 Potassium, (3.5-5.1) 3.5 mmol/L Today, 06:00 Chloride, (98-107) 109 mmol/L H Today, 06:00 Carbon Dioxide, (21.0-32.0) 22.0 mmol/L Today, 06:00 BUN, (7-18) 21 mg/dL H Today, 06:00 Creatinine, (0.70-1.30) 0.9 mg/dL Today, 06:00 Est GFR (CKD-EPI 2020), (mL/min/1.73m2) 90.74 Today, 06:00 Magnesium, (1.8-2.4) 2.1 mg/dL 12/17/24, 00:05 Calcium, (8.5-10.1) 8.7 mg/dL Today, 06:00 Albumin, (3.4-5.0) 2.8 g/dL L Today, 06:00 Glucose, (74-106) 93 mg/dL Today, 06:00 Liver Function Panel: 2 ALT, (16-63) 13 U/L L Today, 06:00 AST, (15-37) 15 U/L Today, 06:00 Venous Blood Gas: 2 VBG pH, (7.31-7.41) 7.37 12/17/24, 00:05 VBG pO2 34 mmHg 12/17/24, 00:05 VBG pCO2, (41-51) 48 mmHg 12/17/24, 00:05 VBG O2 Saturation 61 % 12/17/24, 00:05 VBG HCO3, (23-28) 28 mmol/L 12/17/24, 00:05 VBG Base Excess, (-2-3) 3 mmol/L 12/17/24, 00:05 VBG Total CO2, (24-29) 25 mmol/L 12/17/24, 00:05 Pancreas Panel: 2 Lipase, (<78) 50 U/L 12/17/24, 00:05 Anesthesia Assessment and Plan Anesthesia History Personal History: No History of Anesthesia Complications Family History: No Family History of Anesthesia Complications Exercise Tolerance Exercise Tolerance: Metabolic Equivalents>4 Pertinent Negatives Pertinent Negatives: No Symptoms of GERD, No Major Cardiovascular Symptoms or Complaints and No History of CVA/TIA Cardiac & Pulmonary Exam Cardiac Exam: Normal S1/S2 Heart Sounds Pulmonary Exam: Clear Bilateral Breath Sounds Implantable Cardiac Device Does patient have a Pacemaker or an ICD?: No Airway Exam Known Difficult Airway: No Mallampati Class: 2 Mouth Opening: Normal (> 3cm) Thyromental Distance: Greater than 3 cm Neck Range of Motion: Full ROM Neck Circumference: Normal Teeth Condition: Normal Dentition and Generalized Poor Dentition ASA Classification ASA Score: ASA 2 Emergency Case?: No NPO Status NPO Status: NPO Clears >2 hours, Solids >8 hours Anesthesia Plan Resuscitation Status: Full Code Anesthesia Technique: General Anesthesia Airway Planned: Endotracheal Tube Monitors Used: Standard Monitors
[2024-12-22] MEDS: Lactated Ringers 1,000 ML 30 ML IV (14:51)
--- NOTE | 2024-12-22 15:42 | W.PM.PROGNOT ---
Date of Service Date of service: 12/22/24 Time of Service: 15:44 Assessment and Plan Assessment and plan (1) Sigmoid diverticulitis: Status: Acute Assessment and plan: cw flagyl and rocephin. Advance diet as tolerated (2) SBO (small bowel obstruction): Status: Acute Assessment and plan: consider repeat imaging in the am per GS consult 12/21/24 Pt with some improvement in his appetite and tolerance. Slow but fairly steady progression. 12/22/24 CT abd/pelvis indicates SBO. Plan is for definitive surgical correction this pm (3) HTN (hypertension): Assessment and plan: cw amlodipine Subjective Subjective Interval history since last seen: PT seen and examined in his room. Pt is for surgery today Exam Narrative Exam Narrative: ncat mmm eomi perrla ng in place no lad no jvd rrr no mrg ctab no amu sndbsdecreased x4 Objective Last Vital Signs Temp 35.3 C L 12/22/24 14:13 Pulse 84 12/22/24 14:13 Resp 18 12/22/24 14:13 BP 150/84 H 12/22/24 14:13 Pulse Ox 95 12/22/24 14:13 Laboratory Results - last 24 hr 12/22/24 12/22/24 06:00 06:27 WBC 7.71 RBC 4.08 L Hgb 12.5 L Hct 37.0 L MCV 91 MCH 30.6 MCHC 33.8 RDW 13.9 Plt Count 174 MPV 12.5 H Immature Gran % 0.3 Neutrophils % 78.2 Lymphocytes % 11.3 Monocytes % 9.3 Eosinophils % 0.6 Basophils % 0.3 Nucleated RBC % 0.0 Absolute Neutrophils 6.03 Absolute Lymphocytes 0.87 L Absolute Monocytes 0.72 Absolute Eosinophils 0.05 Absolute Basophils 0.02 Sodium 146 H Potassium 3.5 Chloride 109 H Carbon Dioxide 22.0 Anion Gap 15.0 H BUN 21 H Creatinine 0.9 Est GFR (CKD-EPI 2020) 90.74 Glucose 93 Calcium 8.7 Total Bilirubin 0.4 AST 15 ALT 13 L Alkaline Phosphatase 67 Total Protein 6.1 L Albumin 2.8 L Time Spent with Patient Time Spent with Patient: <25 minutes Time was spent: preparing to see the patient(eg.review tests), obtaining and/or reviewing separately otained hiistory, ordering medications,tests, procedures, referring, communicating with other health child caregiver private home, indepentently interpreting results, counseling the patient and care coordination
--- NOTE | 2024-12-22 15:42 | W.ANESNERVE ---
Nerve Block Single Injection Procedure Date and Time Date Performed: 12/22/24 Procedure Start: 15:08 Location Where Procedure Performed Procedure Location: Operating Room Procedure Stop: 15:16 Reason Performed: Postoperative Analgesia Requesting Provider: Jesse Funk [facility] Timeout Performed Timeout Performed: Yes Monitoring Used ECG, Blood Pressure, SpO2 and See EMR for corresponding vital signs Sterility Sterility: Hand Hygiene, Surgical Cap, Surgical Mask, Sterile Gloves and Chlorhexidine Sedation Given During Procedure Sedation Given (Indicate Dose Given): No Sedation given Patient Mental Status Patient Mental Status: Performed under general anesthesia Nerve Block 1st Nerve Block: Laterality: Bilateral Block Type: TAP Bilateral Ultrasound Image Saved?: Yes Needle / Catheter Used: 100mm SonoPlex II Local Anesthetic Bolus (Indicate Dose Given): Lidocaine used for local infiltration of skin, Injected in 3-5ml increments after negative blood aspiration, Half of Total block solution given into each side, Bupivacaine 0.25% Dose:: 40ml and Exparel Dose:: 20ml Additives (Indicate Dose Given): None Ultrasound: Sterile probe cover and gel used Nerve Stimulator: Not Used Paresthesia: None Procedure Tolerated: No Complications Procedure Outcome: Successful Procedure Comment: Good view, poor fascial plans spread despite repositioning. Performed By: Omero Salmon
[2024-12-22] MEDS: Bupivacaine 0.25% Pres-Free W/EPI 30 ML VIAL (16:00)
--- NOTE | 2024-12-22 16:32 | W.PM.OP ---
Operative Note Operative Note PRE-OP DIAGNOSIS: Small bowel obstruction POST-OP DIAGNOSIS: same PROCEDURE: Exploratory laparotomy and lysis of 1 adhesive band SURGEON: Jesse AVALOS EDGE GRINDER MACHINE: Dianne Balderrama ANESTHESIA TYPE: Local By Surgeon, General LMA/ETT and Primary Nerve Block Refer to Anesthesia Record PATHOLOGY: none sent COMPLICATIONS: None Patient was transported to: PACU Patient's condition: stable Findings: A single adhesion of a thin band of omentum that created a window where a small loop of small bowel became incarcerated, compressed and obstructed. All bowel felt to be viable although a bit macerated. No resection performed. Procedure Description: After obtaining informed consent, patient was brought back to the operating room. He was placed supine on the operating table. He was placed under general anesthesia with endotracheal ovation. Dudley catheter was inserted using sterile technique. Preoperative abdominal wall nerve block was performed by anesthesia using Exparel. His abdomen was prepped and draped in a sterile manner. Timeout was performed. I made a 6 to 8 cm horizontal incision in the midline just above the umbilicus. I did this with a 10 blade scalpel. I used cautery to dissect through the subcutaneous fat down to the fascia. I opened the fascia in the midline with the cautery. With my public health assistant we grasped the peritoneum and I open this with cautery as well. Some clear ascites fluid was noted. I opened the peritoneum along the length of the incision. I immediately noted a slightly dusky appearing loop of bowel with a omental adhesion. In the process of eviscerating the bowel I reduced the small internal hernia that was created by this 1 loop of adhesion within the omentum. The 2 points of compression on the bowel were clearly visible. The distal bowel was clearly decompressed and the proximal bowel was clearly quite distended. I brought the omentum onto the field and noted this single small strand that had created the loop that created the obstruction. I cut it with cautery. I reduced the omentum back into the abdomen. I eviscerated much of the small bowel. I went proximal and distal and noted no other signs of concern. We returned the entire small bowel into the abdominal cavity. He gave a few minutes and reevaluated the loop of concern. There was a few dusky spots at the point of compression but I felt that these would recover. The bowel was visibly peristalsing. I opted not to perform a small bowel resection. The bowel was returned to the abdominal cavity. I brought the omentum down under the incision. I irrigated with about a liter of normal saline. I closed the incision with 0 PDS in a running manner. We closed the skin with 4-0 Monocryl in a running subcuticular manner. We placed Dermabond. Patient was extubated without complication. He tolerated well. Dudley catheter was removed. NG tube was left in place. He went to recovery in stable condition. Disposition: Patient will return to the [facility] [place] under the care of of comanagement of the hospitalist and the general surgery team. Date of Procedure: 12/22/24
--- NOTE | 2024-12-22 16:46 | W.ANESPOSTOP ---
Postoperative Evaluation Date, Time and Location Date Performed: 12/22/24 Time Performed: 16:46 Patient Location: PACU Vital Signs Most Recent Imported Vital Signs: Most Recent Vital Signs Temp Pulse Resp BP Pulse Ox 36.5 C 87 21 147/103 H 95 12/22/24 16:35 12/22/24 16:35 12/22/24 16:35 12/22/24 16:35 12/22/24 16:35 Pain Score Most Recent Pain Score: Most Recent Pain Score Pain Level [Abdomen] 0 12/21/24 21:00 Pain Level 8 12/22/24 16:35 Assessment Mental Status: Awake (Alert & Oriented to Patient Baseline) Airway and Respiratory Function: Patent airway with normal (patient baseline) respiratory exam Cardiovascular Function: Hemodynamically Stable Hydration Status: Adequately Hydrated Nausea & Vomiting: No Nausea or Vomiting Pain: Pain is tolerable per patient Peripheral Nerve Block: Regional nerve block not resolved at time of post operative discharge Postoperative Comments:: Pt. states he has 8/10 pain when asked. He also states it is tolerable after I asked if he wanted some medication for pain. He is falling asleep here and there and not BP/HR are normal. Relaxed conversation.
[2024-12-22] MEDS: fentaNYL 100 MCG/2 ML VIAL IVP ×3 (16:57→17:15)
[2024-12-22] MEDS: Enoxaparin 40 MG/0.4 ML SYR SC (18:31)
[2024-12-23] MEDS: ACETAMINOPHEN 1,000 MG/100 ML BAG 400 MG IVPB ×4 (02:55→20:48)
[2024-12-23 03:18] VITALS: BP 145/87; PULSE 79; RESP 15; TEMP 36.4; O2SAT 93
[2024-12-23] MEDS: HYDROmorphone 2 MG/ML SYR 0.5 MG IVP (06:45)
[2024-12-23 07:02] LABS: Abs Immature Grans 0.03 10^3/uL (0.0-0.06); HCT 35.9 % (40.0-50.0); HGB 12.0 g/dL (13.5-17.5); Immature Grans % 0.4 %; MCH 30.6 pg (27.0-33.0); MCHC 33.4 % (32.0-36.0); MCV 92 fL (80-95); MPV 12.4 fL (8.0-11.0); Platelet Count 162 10^3/uL (130-400); RBC 3.92 10^6/uL (4.36-5.78); RDW 14.1 % (11.8-14.1); RDW-SD 47.8 fL; WBC 6.98 10^3/uL (4.4-10.8)
[2024-12-23 07:20] VITALS: BP 144/88; PULSE 63; RESP 17; TEMP 37; O2SAT 93
[2024-12-23 07:27] LABS: ALT 19 U/L (16-63); AST 18 U/L (15-37); Albumin 2.3 g/dL (3.4-5.0); Alkaline Phosphatase 57 U/L (46-116); Anion Gap 12.8 mmol/L (3-11); BUN 23 mg/dL (7-18); Bilirubin, Total 0.4 mg/dL (0.2-1.0); CO2 22.2 mmol/L (21.0-32.0); Calcium 8.4 mg/dL (8.5-10.1); Chloride 113 mmol/L (98-107); Estimated GFR 79.97 (mL/min/1.73m2); Glucose 94 mg/dL (74-106); Potassium 3.5 mmol/L (3.5-5.1); Sodium 148 mmol/L (136-145); Total Protein 5.3 g/dL (6.4-8.2)
--- NOTE | 2024-12-23 09:11 | PGE_ITS ---
Date of Service Date of service: 12/23/24 Time of Service: 09:11 Assessment and Plan Assessment and plan (1) SBO (small bowel obstruction): Status: Acute Assessment and plan: - initially admitted with unclear picture small bowel obstruction however, subsequent imaging did show SBO - Patient is now postop day 1 for laparotomy and lysis of adhesion - NG tube still in place, appreciate general surgery ongoing consultation and recommendation of NG tube removal and diet advancement (2) Sigmoid diverticulitis: Status: Acute Assessment and plan: -started on flagyl and rocephin, will continue (3) HTN (hypertension): Assessment and plan: -continue home amlodipine Subjective Subjective Interval history since last seen: Patient states that he is doing well today and is looking forward to hopefully having his NG tube removed and diet advanced. Exam Narrative Exam Narrative: Well-appearing older gentleman laying in bed in no acute distress, NG tube in place, ANO x 4, heart regular rhythm, lungs good auscultation bilaterally, abdomen soft, minimal diffuse tenderness around surgical incision sites without surrounding erythema or drainage Objective Last Vital Signs Temp 98.6 F 12/23/24 07:20 Pulse 63 12/23/24 07:20 Resp 17 12/23/24 07:20 BP 144/88 H 12/23/24 07:20 Pulse Ox 93 12/23/24 07:20 Laboratory Results - last 24 hr 12/22/24 12/23/24 17:49 06:00 WBC 6.98 RBC 3.92 L Hgb 12.0 L Hct 35.9 L MCV 92 MCH 30.6 MCHC 33.4 RDW 14.1 Plt Count 162 MPV 12.4 H Immature Gran % 0.4 Neutrophils % 75.3 Lymphocytes % 13.3 Monocytes % 10.0 Eosinophils % 0.4 Basophils % 0.6 Nucleated RBC % 0.0 Absolute Neutrophils 5.25 Absolute Lymphocytes 0.93 L Absolute Monocytes 0.70 Absolute Eosinophils 0.03 Absolute Basophils 0.04 Sodium 148 H Potassium 3.5 Chloride 113 H Carbon Dioxide 22.2 Anion Gap 12.8 H BUN 23 H Creatinine 1.0 Est GFR (CKD-EPI 2020) 79.97 Glucose 94 Calcium 8.4 L Total Bilirubin 0.4 AST 18 ALT 19 Alkaline Phosphatase 57 Total Protein 5.3 L Albumin 2.3 L B. divergens/MO-1 PCR Cancelled Babesia duncani (PCR) Cancelled Babesia microti DNA PCR Cancelled E.chaffeensis DNA (PCR) Cancelled E.ewingii/canis DNA PCR Cancelled E.muris eauclairensis (PCR) Cancelled A. phagocytophilum (PCR) Cancelled Blood B. miyamotoi (PCR) Cancelled Time Spent with Patient Time Spent with Patient: >50 minutes Time was spent: preparing to see the patient(eg.review tests), obtaining and/or reviewing separately otained hiistory, ordering medications,tests, procedures, referring, communicating with other health child care specialist, indepentently interpreting results, counseling the patient and care coordination
[2024-12-23] MEDS: Normal Saline Flush 10 ML SYR IVP ×2 (09:44→20:51)
[2024-12-23] MEDS: Pantoprazole 40 MG VIAL IVP (09:57)
[2024-12-23 12:36] VITALS: BP 150/95; PULSE 82; RESP 18; TEMP 36.5; O2SAT 94
--- NOTE | 2024-12-23 14:41 | W.PM.PROGNOT ---
Date of Service Date of service: 12/23/24 Time of Service: 14:41 Assessment and Plan Assessment and plan (1) SBO (small bowel obstruction): Status: Acute Assessment and plan: Bryan seems to be doing quite well after lysis of adhesion, and resolution of the small bowel obstruction. I will remove the nasogastric tube this afternoon, and see how he does through the evening. Hopefully, we can advance his diet later Subjective Subjective Interval history since last seen: Bryan says he is feeling much better today. His appetite is increased quite a bit. He denies any nausea or vomiting through the morning time. Exam GI Other: Abdomen is soft, not distended. Is not tympanitic. Objective Last Vital Signs Temp 97.7 F 12/23/24 12:36 Pulse 82 12/23/24 12:36 Resp 18 12/23/24 12:36 BP 150/95 H 12/23/24 12:36 Pulse Ox 94 12/23/24 12:36 Laboratory Results - last 24 hr 12/22/24 12/23/24 17:49 06:00 WBC 6.98 RBC 3.92 L Hgb 12.0 L Hct 35.9 L MCV 92 MCH 30.6 MCHC 33.4 RDW 14.1 Plt Count 162 MPV 12.4 H Immature Gran % 0.4 Neutrophils % 75.3 Lymphocytes % 13.3 Monocytes % 10.0 Eosinophils % 0.4 Basophils % 0.6 Nucleated RBC % 0.0 Absolute Neutrophils 5.25 Absolute Lymphocytes 0.93 L Absolute Monocytes 0.70 Absolute Eosinophils 0.03 Absolute Basophils 0.04 Sodium 148 H Potassium 3.5 Chloride 113 H Carbon Dioxide 22.2 Anion Gap 12.8 H BUN 23 H Creatinine 1.0 Est GFR (CKD-EPI 2020) 79.97 Glucose 94 Calcium 8.4 L Total Bilirubin 0.4 AST 18 ALT 19 Alkaline Phosphatase 57 Total Protein 5.3 L Albumin 2.3 L B. divergens/MO-1 PCR Cancelled Babesia duncani (PCR) Cancelled Babesia microti DNA PCR Cancelled E.chaffeensis DNA (PCR) Cancelled E.ewingii/canis DNA PCR Cancelled E.muris eauclairensis (PCR) Cancelled A. phagocytophilum (PCR) Cancelled Blood B. miyamotoi (PCR) Cancelled Time Spent with Patient Time Spent with Patient: 25-34 minutes Time was spent: preparing to see the patient(eg.review tests), referring, communicating with other health critical care educator and counseling the patient
--- NOTE | 2024-12-23 15:04 | CMPROGNOTE_ITS ---
Date of service: 12/23/24 Time of Service: 15:11 Care Management Progress Note Progress Note Text Progress Note Text: Bryan was lying in bed and visiting with his significant other Sully when CM met with him. Bryan was pleasant and willing to engage in conversation. He reports he is feeling much better and is hopeful to go home soon. Bryan reports his partner will take him home and he does not feel he needs home services. CM will continue to follow. Discharge Potential Discharge Needs: PT Evaluation and Surgical F/U Appt Anticipated Barriers to Discharge: Medical Status Patient/Family Education Needs: Review discharge instructions, discuss Ask Me Three Transportation: Private vehicle Plan: Anticipate Bryan will return home when medically cleared, with no new services. He will f/u with his PCP and likely the surgeon. His S/O will drive him home via private vehicle when ready. He will follow up with his PCP and continue per his discharge plan of care. CM will continue to follow. Social Determinants of Health Screening Social Determinants of health last assessed in clinic: 12/23/24 Will the Patient Participate in the Screening?: Yes Do you worry about having a steady place to live?: yes What is your living situation today?: I have housing today, but am worried about losing it Problems where you live: no known problems In the past 12 months, have you had to go without electric, gas, oil or water in your home?: no 1. Within the past 12 months, we worried whether our food would run out before we got money to buy more.: Never true 2. Within the past 12 months, the food we bought just didn't last and we didn't have money to get more.: Never true Has lack of transportation kept you from medical appointments or from doing things needed for daily living?: no Has anyone in your life made you feel unsafe or unsupported?: no How hard is it for you to pay for the very basics like food, housing, medical care, and heating? Would you say it is:: Not hard at all Do you want help finding or keeping work or a job?: I do not need or want help If for any reason you need help with day-to-day activities such as bathing, preparing meals, shopping, managing finances, etc., do you get the help you need?: I don?t need any help How often do you feel lonely or isolated from those around you?: Never Do you speak a language other than Hungarian at home?: No Does the patient want assistance with any of the above?: No Health Related Social Needs Health related social needs: housing instability, housed, with risk of homelessness (Z59.811) Health related social needs details: No needs currently
[2024-12-23 15:33] VITALS: BP 149/84; PULSE 83; RESP 17; TEMP 36.4; O2SAT 94
[2024-12-23] MEDS: Enoxaparin 40 MG/0.4 ML SYR SC (18:56)
[2024-12-23] MEDS: Normal Saline 1,000 ML 125 ML IV (19:36)
[2024-12-23 20:57] VITALS: BP 141/85; PULSE 84; RESP 19; TEMP 36.2; O2SAT 93
[2024-12-23 23:52] VITALS: BP 160/92; PULSE 79; RESP 20; TEMP 36; O2SAT 94
[2024-12-24] MEDS: ACETAMINOPHEN 1,000 MG/100 ML BAG 400 MG IVPB ×2 (02:48→09:46)
[2024-12-24] MEDS: Normal Saline 1,000 ML 125 ML IV (04:38)
--- NOTE | 2024-12-24 09:26 | PDOC.CMPRO ---
Date of service: 12/24/24 Time of Service: 09:26 Care Management Progress Note Discharge Potential Discharge Needs: PT Evaluation, PCP F/U Appt and Surgical F/U Appt Anticipated Barriers to Discharge: None Identified Patient/Family Education Needs: Review discharge instructions, discuss Ask Me Three Transportation: Private vehicle Plan: Bryan will return home when medically cleared, with no new services. He will f/u with his PCP and likely the surgeon. His S/O will drive him home via private vehicle when ready. He will follow up with his PCP and continue per his discharge plan of care. CM will continue to follow. Social Determinants of Health Screening Social Determinants of health last assessed in clinic: 12/23/24 Will the Patient Participate in the Screening?: Yes Do you worry about having a steady place to live?: yes What is your living situation today?: I have housing today, but am worried about losing it Problems where you live: no known problems In the past 12 months, have you had to go without electric, gas, oil or water in your home?: no Has lack of transportation kept you from medical appointments or from doing things needed for daily living?: no Has anyone in your life made you feel unsafe or unsupported?: no How hard is it for you to pay for the very basics like food, housing, medical care, and heating? Would you say it is:: Not hard at all Do you want help finding or keeping work or a job?: I do not need or want help If for any reason you need help with day-to-day activities such as bathing, preparing meals, shopping, managing finances, etc., do you get the help you need?: I don?t need any help How often do you feel lonely or isolated from those around you?: Never Do you speak a language other than Kyrgyz at home?: No Does the patient want assistance with any of the above?: No Health Related Social Needs Health related social needs: housing instability, housed, with risk of homelessness (Z59.811) Health related social needs details: No needs currently
[2024-12-24] MEDS: Pantoprazole 40 MG VIAL IVP (09:45)
[2024-12-24] MEDS: Normal Saline Flush 10 ML SYR IVP (09:46)
[2024-12-24 10:26] LABS: Abs Immature Grans 0.09 10^3/uL (0.0-0.06); HCT 34.9 % (40.0-50.0); HGB 11.8 g/dL (13.5-17.5); Immature Grans % 1.1 %; MCH 30.4 pg (27.0-33.0); MCHC 33.8 % (32.0-36.0); MCV 90 fL (80-95); MPV 11.6 fL (8.0-11.0); Platelet Count 181 10^3/uL (130-400); RBC 3.88 10^6/uL (4.36-5.78); RDW 14.1 % (11.8-14.1); RDW-SD 46.5 fL; WBC 8.16 10^3/uL (4.4-10.8)
--- NOTE | 2024-12-24 10:31 | W.PM.PROGNOT ---
Date of Service Date of service: 12/24/24 Time of Service: 10:31 Assessment and Plan Assessment and plan (1) SBO (small bowel obstruction): Status: Resolved Assessment and plan: Significant improvement in Bryan's symptoms. Bowel function appears to have returned. Will progress diet today. He should be able to d/c home later today. He will need a follow up with the surgical office in 2 weeks. Subjective Subjective Interval history since last seen: Bryan reports he is feeling great and really ready to be d/c home. He states he had a BM last night and is hungry. He describes his pain as well controlled at this time. Exam Const General: cooperative, healthy appearing and comfortable Orientation: alert and oriented x3 Resp Effort & Inspection: normal respiratory effort, no audible wheezes and no cough GI Inspection: normal to inspection Objective Last Vital Signs Temp 36.0 C L 12/23/24 23:52 Pulse 79 12/23/24 23:52 Resp 20 12/23/24 23:52 BP 160/92 H 12/23/24 23:52 Pulse Ox 94 12/23/24 23:52 Laboratory Results - last 24 hr 12/24/24 10:16 WBC 8.16 RBC 3.88 L Hgb 11.8 L Hct 34.9 L MCV 90 MCH 30.4 MCHC 33.8 RDW 14.1 Plt Count 181 MPV 11.6 H Immature Gran % 1.1 Neutrophils % 71.3 Lymphocytes % 15.4 Monocytes % 10.0 Eosinophils % 1.8 Basophils % 0.4 Nucleated RBC % 0.0 Absolute Neutrophils 5.81 Absolute Lymphocytes 1.26 Absolute Monocytes 0.82 H Absolute Eosinophils 0.15 Absolute Basophils 0.03 Time Spent with Patient Time Spent with Patient: <25 minutes Time was spent: preparing to see the patient(eg.review tests), obtaining and/or reviewing separately otained hiistory and counseling the patient
[2024-12-24 11:07] VITALS: BP 161/89; PULSE 85; RESP 18; TEMP 36.7; O2SAT 95
[2024-12-24 11:09] LABS: Lyme Ab w Rflx to Lyme Confirm Negative (Negative)
--- NOTE | 2024-12-24 12:29 | PDOC.CMDIS ---
Date of service: 12/24/24 Time of Service: 12:29 LACE Index Scoring Tool Questions: Length of Stay (in days): 7 - 13 Was the patient admitted via the E.D.?: Yes E.D. Visits: 1 Answers: Total Score: 9 Risk of Readmission: Low Risk Care Management Discharge Plan Reason for Hospitalization: Diverticulitis Discharge Plan: Discharge home via private vehicle with family. Follow up with outpatient providers and discharge plan of care as discussed. No new services are indicated at the time of discharge. Patient/Family Education Needs: Review discharge plan of care and discuss ask me 3 to promote engagement and understanding of his discharge plan of care. SDOH Health Related Social Needs: Health related social needs risk of homeless Health related social needs details No needs currently Health related social needs details: No needs currently
--- NOTE | 2024-12-24 14:39 | W.PM.DS.N ---
Date of service: 12/24/24 Time of Service: 14:40 DS: Diagnosis Discharge Diagnosis (1) SBO (small bowel obstruction): Status: Acute Discharge Plan Disposition Patient Disposition: Home Condition: Good Discharge Details Reason For Visit: Diverticulitis, early/partial SBO Admit Date/Time: 12/17/24 02:13 Admit Provider: Moises Leal Attending Provider: Moises Leal Primary Care Provider: Marisa Dunn Hospital Course Hospital Course: Patient initially presented with abdominal pain that was determined to be secondary to diverticulitis with partial small bowel obstruction likely due to a effusions. Patient had laparotomy with lysis of adhesions on 12/22/2024 and tolerated the procedure well. NG tube was removed and patient had his diet slowly advance was able to tolerate without any difficulty. Ultimately, it is determined that the patient was stable for discharge home. It is recommended that the patient wash the incision site with soapy water daily, and that he not lift more than 10 pounds. He will also have follow-up appointment with general surgery in 2 weeks. Home Meds and New Rx's Prescriptions: Continued ibuprofen 600 mg tablet 600 mg PO Q6H PRN amlodipine 5 mg tablet 5 mg PO DAILY Patient Comments: TAKE ONE TABLET BY MOUTH EVERY DAY Discharge Instructions Referrals: Naeem Pemberton MD [ [facility] STAFF PHYSICIAN, Surgery] - 01/07/25 Referral Note: post-op lap lysis of adhesions Activity:: Activity as Tolerated Equipment/Supplies:: No Equipment Needed Diet:: As Tolerated DS: Summary Time Spent with Patient providing and/or coordinating discharge services: Greater than 30 minutes Status at Discharge Functional status at discharge: independent ambulation Overall status at discharge: patient is back to baseline Mental Status: mental status grossly normal Speech and Movement: speech and movement normal Mood: congruent mood Affect: normal affect Quality:SDOH Health Related Social Needs: Health related social needs risk of homeless Health related social needs details No needs currently Health related social needs details: No needs currently Exam Narrative Exam Narrative: Well-appearing older gentleman laying in bed in no acute distress, ANO x 4, heart regular rhythm, lungs good auscultation bilaterally, abdomen soft, minimal diffuse tenderness around surgical incision sites without surrounding erythema or drainage Psych Mental Status: mental status grossly normal Speech and Movement: speech and movement normal Mood: congruent mood Affect: normal affect DS: Data Vitals/I&O Vitals and I&O: Vital Signs Temperature 98.1 F 12/24/24 11:07 Temperature Source Temporal Artery Scan 12/24/24 11:07 Pulse 85 12/24/24 11:07 Pulse 88 12/17/24 09:40 Respiratory Rate 18 12/24/24 11:07 Respiratory Effort Normal, Non-Labored 12/17/24 16:32 Respiratory Depth Normal 12/17/24 16:32 Respiratory Pattern Normal 12/17/24 16:32 Blood Pressure 161/89 H 12/24/24 11:07 Blood Pressure Mean 113 12/24/24 11:07 Blood Pressure Position Sitting 12/16/24 23:58 Pulse Oximetry 95 12/24/24 11:07 Respiratory End-tidal CO2 12/22/24 17:20 Oxygen Delivery Method Room Air 12/24/24 11:07 Oxygen Flow Rate 0 12/24/24 11:07 Pain Level 0 12/24/24 11:07 Comment refused vitals 12/24/24 03:16 Intake & Output 12/23/24 12/24/24 12/24/24 17:59 05:59 17:59 Intake Total 200 / 200 1200 / 1400 Output Total 500 / 500 500 / 1000 Balance -300 / -300 700 / 400 Weight 191 lb 12.835 oz Intake: IV 200 / 200 1200 / 1400 Output: Gastric Drainage 500 / 500 Left Nare 500 / 500 Urine 500 / 500 Other: Urine Color Light Yu Light Yu Urine Appearance Clear Clear Comment Voids independently. Stool Size Large Small Stool Characteristics Liquid Formed Brown Data Completed and Pending Labs on day of discharge: Labs from last 24 hours 12/24/24 12/22/24 10:16 06:00 WBC 8.16 RBC 3.88 L Hgb 11.8 L Hct 34.9 L MCV 90 MCH 30.4 MCHC 33.8 RDW 14.1 Plt Count 181 MPV 11.6 H Immature Gran % 1.1 Neutrophils % 71.3 Lymphocytes % 15.4 Monocytes % 10.0 Eosinophils % 1.8 Basophils % 0.4 Nucleated RBC % 0.0 Absolute Neutrophils 5.81 Absolute Lymphocytes 1.26 Absolute Monocytes 0.82 H Absolute Eosinophils 0.15 Absolute Basophils 0.03 Sodium Pending Potassium Pending Chloride Pending Carbon Dioxide Pending Anion Gap Pending BUN Pending Creatinine Pending Est GFR (CKD-EPI 2020) Pending Glucose Pending Calcium Pending Total Bilirubin Pending AST Pending ALT Pending Alkaline Phosphatase Pending Total Protein Pending Albumin Pending Lyme Disease Antibody Negative PFSH All Active Problems (Updated 12/17/24 @ 10:36 by Michael Escoto DO) Sigmoid diverticulitis (Acute) SBO (small bowel obstruction) (Acute) Medical History HTN (hypertension) Surgical History S/P spinal surgery Status post THR (total hip replacement) S/P appendectomy Social History Smoking/Tobacco Use Status: Former Tobacco Use Smoking risk assessment performed?: Yes Alcohol Intake: never Drug use: Never Substance use type: does not use Housing: house Time Spent with Patient Time Spent with Patient: <45 minutes Time was spent: preparing to see the patient(eg.review tests), obtaining and/or reviewing separately otained hiistory, ordering medications,tests, procedures, referring, communicating with other health career guidance technician, indepentently interpreting results, counseling the patient and care coordination
[2024-12-24 15:13] VITALS: BP 156/94; PULSE 97; RESP 18; TEMP 36.5; O2SAT 95
[2024-12-24 15:22] LABS: ALT 19 U/L (16-63); AST 23 U/L (15-37); Albumin 2.3 g/dL (3.4-5.0); Alkaline Phosphatase 58 U/L (46-116); Anion Gap 8.3 mmol/L (3-11); BUN 19 mg/dL (7-18); Bilirubin, Total 0.3 mg/dL (0.2-1.0); CO2 24.7 mmol/L (21.0-32.0); Calcium 7.9 mg/dL (8.5-10.1); Chloride 113 mmol/L (98-107); Estimated GFR 94.03 (mL/min/1.73m2); Glucose 128 mg/dL (74-106); Potassium 3.0 mmol/L (3.5-5.1); Sodium 146 mmol/L (136-145); Total Protein 5.2 g/dL (6.4-8.2)
[2024-12-25 23:18] LABS: B. miyamotoi PCR Negative (Negative); Babesia divergens/MO-1 Negative (Negative); Ehrlichia muris eauclairensis Negative (Negative)
== END 2024-12-24 18:19 | disposition home or self-care (01) | DRG 336 ==
LOC: ER 12-17 02:23 → EDHOLD 12-17 02:25 → MS 12-17 14:38
PROVIDERS: Hospitalist; Physical Therapy Assistant; Surgery; Admitting Provider Family Medicine; Emergency Provider Emergency Medicine; PCP Family Medicine; Responsible Provider Family Medicine; Visit Provider Family Medicine
PROC: 0DN80ZZ Release Small Intestine, Open Approach (ICD-10-PCS; CPT 49000; principal; 2024-12-22 13:00)
DX: K57.32 Diverticulitis of large intestine without perforation or abscess without bleeding (principal); G89.18 Other acute postprocedural pain; R10.9 Unspecified abdominal pain; I10 Essential (primary) hypertension; K56.50 Intestinal adhesions [bands], unspecified as to partial versus complete obstruction; Z87.891 Personal history of nicotine dependence
CPT/HCPCS: 44005; 00123; 36415; 64488; 71045; 80048; 80053; 82805; 83690; 85027; 87798; 92610; 96365; 96367; 96375; 99222; 99231; 99232; 99285; J1650; 74018; 74019; 74177; 83605; 83735; 85025; 86618; 99223; 99233; 99239; J0131; J0665; J0666; J0696; J1100; J1171; J1836; J1885; J2270; J2371; J2405; J2470; J2704; J3010; J3480; J3490

== ENCOUNTER 2025-01-14 17:56 | Outpatient (REF) | payer MEDICARE, OTHER, SELFPAY ==
[2025-01-14 17:41] LABS: Anion Gap 11.6 mmol/L (3-11); BUN 21 mg/dL (7-18); CO2 20.4 mmol/L (21.0-32.0); Calcium 8.7 mg/dL (8.5-10.1); Chloride 111 mmol/L (98-107); Estimated GFR 71.32 (mL/min/1.73m2); Glucose 99 mg/dL (74-106); Potassium 4.8 mmol/L (3.5-5.1); Sodium 143 mmol/L (136-145)
== END 2025-01-14 17:57 | disposition home or self-care (01) ==
LOC: NCHCN 17:56
PROVIDERS: PCP Family Medicine; Visit Provider Family Medicine
DX: K57.32 Diverticulitis of large intestine without perforation or abscess without bleeding (principal)
CPT/HCPCS: 80048

== ENCOUNTER 2025-02-21 15:01 | Outpatient (CLI) | payer MEDICARE, OTHER, SELFPAY ==
[2025-02-21] MEDS: Normal Saline - Diluent 50 ML VIAL IJ (15:01)
[2025-02-21] MEDS: Normal Saline Flush 10 ML SYR IVP (15:01)
[2025-02-21] MEDS: Omnipaque 350 MG/ML 100 ML BTL IJ (15:01)
--- NOTE | 2025-02-21 15:03 | DI.CT_ITS ---
Exam(s) CT CHEST PE CTA EXAM: CT CHEST PE CTA CLINICAL HISTORY: SOB R06.02 RECENT HOSPITALIZATION SURGERY HX PE DVT HYPOXIA DYSPNEA CHEST. TECHNIQUE: Imaging Protocol: Axial CT angiography was performed with multi- slice acquisition and multi-planar and/or 3D reconstructions. Lung Computer Aided Detection (CAD) was utilized. CONTRAST MATERIAL: Intravenous: Omnipaque 350 contrast volume:80 mL COMPARISON: CT CT ABDOMEN PELVIS W from 12/22/2024 FINDINGS: Tracheobronchial tree: Patent where visualized. No bronchiectasis. Pulmonary parenchyma: Small infiltrates are seen in the right middle lobe in the right lower lobe. The left lung is clear. No architectural distortion. Pulmonary Arteries: No evidence of filling defect to suggest pulmonary emboli. Mediastinum and [place]: No dominant adenopathy or fluid collection. The esophagus is unremarkable. There is a large hiatal hernia. Visualized thyroid gland: Unremarkable. Pleura: No effusion or pneumothorax. Heart: The heart is not dilated. Coronary artery calcifications are present. No pericardial effusion. Aorta: The ascending thoracic aorta measures 3.8 x 3.9 cm. Atherosclerotic calcification is present. Upper abdomen: Unremarkable. Soft tissues: Unremarkable. Bones: Within normal limits for the patient's age. IMPRESSION: 1. There is no evidence of a pulmonary embolism. 2. Small infiltrate in the right middle and right lower lobe which has significantly improved since the prior examination from 12/22/2024. There has been resolution of the pleural effusions. RADIATION DOSE DELIVERED: Total DLP DATA REPOSITORY: All CT scans at this facility are submitted to the National Radiology Data Registry (NRDR) Dose Index Registry (DIR) with the [employer] (ACR). RADIATION OPTIMIZATION: All CT scans at this facility use at least one of these dose optimization techniques: automated exposure control; mA and/or kV adjustment per patient size (includes targeted exams where dose is matched to clinical indication); or iterative reconstruction.
== END 2025-02-21 15:21 ==
LOC: DI 15:01
PROVIDERS: PCP Family Medicine; Visit Provider Family Medicine
DX: R06.02 Shortness of breath (principal); R91.8 Other nonspecific abnormal finding of lung field
CPT/HCPCS: 71275; J3490

== ENCOUNTER 2025-03-19 13:26 | Outpatient (REF) | payer MEDICARE, OTHER, SELFPAY ==
[2025-03-19 15:12] LABS: Abs Immature Grans 0.01 10^3/uL (0.0-0.06); HCT 35.3 % (40.0-50.0); HGB 11.4 g/dL (13.5-17.5); Immature Grans % 0.2 %; MCH 28.9 pg (27.0-33.0); MCHC 32.3 % (32.0-36.0); MCV 90 fL (80-95); MPV 12.4 fL (8.0-11.0); Platelet Count 176 10^3/uL (130-400); RBC 3.94 10^6/uL (4.36-5.78); RDW 13.8 % (11.8-14.1); RDW-SD 45.2 fL; WBC 5.01 10^3/uL (4.4-10.8)
[2025-03-19 15:30] LABS: ALT 15 U/L (16-63); AST 12 U/L (15-37); Albumin 3.5 g/dL (3.4-5.0); Alkaline Phosphatase 103 U/L (46-116); Anion Gap 10.1 mmol/L (3-11); BUN 24 mg/dL (7-18); Bilirubin, Total 0.5 mg/dL (0.2-1.0); CO2 23.9 mmol/L (21.0-32.0); Calcium 8.6 mg/dL (8.5-10.1); Chloride 109 mmol/L (98-107); Estimated GFR 70.88 (mL/min/1.73m2); Glucose 88 mg/dL (74-106); Potassium 4.4 mmol/L (3.5-5.1); Sodium 143 mmol/L (136-145); Total Protein 6.6 g/dL (6.4-8.2)
== END 2025-03-19 13:27 | disposition home or self-care (01) ==
LOC: NCHCN 13:26
PROVIDERS: PCP Family Medicine; Visit Provider Family Medicine
DX: R07.9 Chest pain, unspecified (principal)
CPT/HCPCS: 80053; 85025

== ENCOUNTER 2025-03-27 03:47 | Outpatient (CLI) | payer MEDICARE, OTHER, SELFPAY ==
--- NOTE | 2025-03-27 | DI.RAD_ITS ---
Exam(s) XR CHEST 2V PA LATERAL EXAM: XR CHEST 2V PA LATERAL CLINICAL HISTORY: EXERTIONAL CHEST PAIN, SOB R07.9 R06.02 TECHNIQUE: 2D digital imaging was performed. Two views. COMPARISON: CR XR PORTABLE CHEST AP from 12/21/2024 CR XR PORTABLE CHEST AP from 12/21/2024 CR XR PORTABLE CHEST AP POST LINE from 12/21/[address] CHEST PE CTA from 02/21/2025 FINDINGS: HEART: Normal size. Aorta: Mildly tortuous. PULMONARY VASCULATURE: Normal. MEDIASTINUM: Hiatal hernia. LUNGS: Mild residual somewhat linear densities in the right middle lobe. Improvement when compared with previous exam. Clear. PLEURAL SPACE: No pleural effusion or pneumothorax. BONE:Unremarkable for age. SOFT TISSUES: Unremarkable. IMPRESSION: Mild residual infiltrate versus atelectasis or scarring in the right middle lobe. No new abnormalities. DATA REPOSITORY: RADIATION DOSE DELIVERED:
--- NOTE | 2025-03-27 | DI.NM_ITS ---
APPROVED REPORT Exam: Pharmacologic Patient Location: Out-Patient Room/Bed: Stress Nurse: Delaney Proctor RN Ordering Provider:BENIGNO RODRIGEZ, Contact Number: BMI: 25.82 Baseline Rhythm: Sinus Rhythm Indications: Exertional chest pain, SOB, Medical History Medical History: HTN, anxiety, dyspnea, chest pain, chronic low pain, irregular heart beat. OVIEDO, mobility issues Cardiac Medications: Escitalopram Allergies: NKDA Cardiac Risk Factors: Family hx, HTB, former smoker Previous Cardiac Procedures: None Pretest Chest Pain Characteristics: None Exercise History: Indeterminate Physical Disabilities: L Leg, uses cane Lung Sounds: Clear to auscultation Heart Sounds: Regular Stress Test Details Test: Pharmacologic stress testing performed using 0.4 mg of regadenoson per 5 mL given IV over 10 seconds. Reason for pharmacologic stress test: physical limitation. Nuclear Acquisition: Rest Tc-99m/Stress Tc-99m 1 day Rest Isotope: Tc-99m Sestamibi. Dose: 9.8 Date: 03/27/2025 Injection Time: 0830 Stress Isotope: Tc-99m Sestamibi. Dose: 29.5 Date: 03/27/2025 HR Resting HR Supine: 61 bpm Max Heart Rate (APMHR): 147 bpm Target HR (85% APMHR): 125 bpm Max HR Achieved: 100 bpm % of APMHR: 68 Recovery HR: 84 bpm BP Resting BP Supine: 148/96 mmHg Max BP: 160/90 mmHg Recovery BP: 156/88 mmHg ECG Resting ECG: Sinus Rhythm Ectopy: Occasional PVC's Stress ECG: Sinus Tachycardia ST Change: Nondiagnostic low heart rate Arrhythmia: Occasional PVC's, rare PAC Recovery ECG: Sinus Rhythm Recovery ST Change: Nondiagnostic low heart rate Clinical Stress Symptoms: Mod SOB Angina Score: None Rate Pressure Product: [id number] Stress ECG Conclusion 1. Resting electrocardiogram is normal 2. Patient underwent testing using pharmacologic stress with regadenoson 3. Peak heart rate achieved was 68% of maximal predicted for age 4. The electrocardiographic portion of the test was nondiagnostic 5. See MPI report Stress Test Summary STAGE HR BP SpO2 Symptoms NOTES Supine 61 148/60 98% 1 min post Lexiscan injection 87 152/100 96% Mod SOB 3 min post Lexiscan injection 91 160/90 98% 6 min post Lexiscan injection 84 156/88 96% SOB resolved Laying bailee test performed r/t mobility issues. Patient c/o mod SOB s/p bailee admin. All symptoms resolved by test end. Patient left ambulatory in no apparent distress. MPI Conclusion Myocardial perfusion is normal. There is no ischemia or evidence of prior infarction Ejection fraction is 62% with normal wall motion
--- NOTE | 2025-03-27 07:30 | DI.US_ITS ---
APPROVED REPORT EXAM: Comprehensive 2D, Doppler, and color-flow Echocardiogram Patient Location: Out-Patient Well Shooter: Monalisa Saavedra RDCS (AE) Indications: Exertional chest pain, SOB Other Information Study Quality: Good Conclusion Normal left ventricular wall thickness and chamber size. Ejection fraction is 60%. Wall motion is normal Normal right ventricular size and function Both atria are normal in size Trileaflet aortic valve with mild regurgitation Estimated right ventricular systolic pressure is 27 mmHg Very mildly dilated ascending aorta 3.65 cm Wall motion Left Ventricle The left ventricle is normal size. The left ventricular systolic function is normal. The left ventricular ejection fraction is within the normal range. There is normal left ventricular wall thickness. There is normal LV segmental wall motion. There is no ventricular septal defect visualized. LVEF is 60%. Right Ventricle The right ventricle is normal size. The right ventricular systolic function is normal. Atria The left atrium size is normal. The right atrium size is normal. The interatrial septum is intact with no evidence for an atrial septal defect. Aortic Valve The aortic valve is normal in structure. Aortic valve is trileaflet. There is no aortic valvular stenosis. Mild aortic regurgitation. Mitral Valve The mitral valve is normal in structure. No evidence of mitral valve stenosis. Trace mitral regurgitation. Tricuspid Valve The tricuspid valve is normal in structure. There is no tricuspid valve stenosis. Trace tricuspid regurgitation. The RVSP is 27.0 mmHg. Pulmonic Valve The pulmonary valve is normal in structure. There is no pulmonic valvular stenosis. Trace pulmonic regurgitation. Great Vessels The aortic root is normal in size. The ascending aorta is mildly dilated. Aortic arch is normal in caliber. IVC is normal in size and collapses >50% with inspiration. Pericardium There is no pericardial effusion. 2D Dimensions IVSD d PLAX 0.81 cm M: 0.6-1.2 Ao Root d 3.57 cm M: 3.1 - 3.7 LVPW d PLAX 0.84 cm M: 0.6 - 1.2 Ao Asc Diam d 3.65 cm M: 2.6 - 3.4 LVID d PLAX 4.24 cm M: 4.2 - 5.8 LVDs 2.91 cm M: 2.5 - 4.0 LV EF Teichholz 59.6 % FS 31.40 % LV EDV (Teich) 80.3 mL LV ESV (Teich) 32.4 mL M-Mode TAPSE 1.63 cm (M/F) >1.7 Auto EF LV EDV A4C 114.0 mL LV EDV A2C 109.8 mL LV EDV BP 111.6 mL LV ESV A4C 45.9 mL LV ESV A2C 44.1 mL LV ESV BP 45.2 mL LVEF(%) A4C 59.7 % LVEF(%) A2C 59.8 % LVEF(%) BP 59.5 % LV SV A4C 68.1 ml LV SV A2C 65.7 ml LV SV BP 66.4 ml LV CO A4C 4.4 L/min LV CO A2C 4.5 L/min LV CO BP 4.4 L/min HR A4C 64.06 BPM HR A2C 68.44 BPM LV EDV Index (BP) LA Volume LA Length A4C 5.5 cm LA Length A2C 6.0 cm LA Area A4C s 18.92 cm2 LA Area A2C s 20.37 cm2 LA Vol A4C A-L 55.14 mL LA Vol A2C A-L 59.05 mL LA Vol Biplane A-L 59.4 mL LA Vol/BSA A4C A-L LA Vol/BSA A2C A-L LA Vol/BSA BP A-L 30.4 mL/m2 LA Vol A4C MOD 48.8 mL LA Vol A2C MOD 54.6 mL LA Vol BP MOD 53.7 mL RA Volume RA Area A4C 18.7 cm2 RA ESV A4C (A-L) 53.4mL RA Vol/BSA A4C A-L RA Length A4C 5.6 cm RA ESV A4C (MOD) 49.6mL LV Diastology MV E' medial 0.067 (>0.07 m/s) MV E Vmax 0.88 (0.4-1.3 m/s) MV E/E' MED 13.20 (<14) MV A Vmax 0.75 (0.4-1.3 m/s) MV E' lateral 0.118 (>0.1 m/s) E/A Ratio 1.2 MV E/E' LAT 7.49 (<14) MV E' Average 0.092 m/s MV E/E'(average) 9.56 Aortic Valve AoV Vmax 1.15 m/s LVOT Vmax 1.06 m/s AoV Peak Grad 45.3 mmHg LVOT Peak Grad 4.5 mmHg AoV Area (Vmax) 3.12 cm2 LVOT VTI 0.233 m AoV VTI 0.257 m LVOT Mean Grad 2.7 mmHg AoV Mean Subhash. 0.82 m/s LVOT SV 78.64 mL AoV Mean Grad 3.1 mmHg LVOT Diam s 2.05 cm AoV Area (VTI) 3.06 cm2 AV Regurg Peak Gr. 5.31 mmHg Velocity Ratio 0.92 AR Decel Story 1.7m/sec2 AR DT 2762 msec AR PHT 801 msec AR Vmax 4.61 m/s Mitral Valve MV DT 198 (160-240 msec) MV Vmax TIPS 0.82 m/s MV Mean Grad 1.2 (<2mmHg) MV VTI 0.238 m Pulmonary Valve PV Vmax 0.87 (0.5-1.5 m/s) RVOT Vmax 0.73 m/s PV Peak Grad 3.0 mmHg RVOT Peak Gr. 2.1 mmHg PV Mean Subhash 0.57 m/s RVOT VTI 0.169 m PV Mean Grad 1.5 mmHg RVOT Mean Gr. 1.0 mmHg Tricuspid Valve RA Pressure 3.00 mmHg TR Vmax 2.45 m/s TV S' 0.14 m/s TR Peak Grad 23.9 mmHg RVSP (TR) 27.0 mmHg
[2025-03-27] MEDS: Regadenoson 0.4 MG/5 ML SYR IVP (10:59)
== END 2025-03-27 04:07 ==
LOC: DI 03:47
PROVIDERS: PCP Family Medicine; Visit Provider Family Medicine
DX: R07.9 Chest pain, unspecified (principal); R06.02 Shortness of breath
CPT/HCPCS: 78452; 93016; 93018; 93306; 71046; 93017; J2785

== ENCOUNTER 2025-04-25 02:11 | Outpatient (CLI) | payer MEDICARE, OTHER, SELFPAY ==
[2025-04-25] MEDS: Inhaler, Assist Device 1 EACH MC (12:16)
[2025-04-25] MEDS: Methacholine 100 MG VIAL IH (12:16)
[2025-04-25] MEDS: Albuterol HFA 18 GM 200 PUFF INH IH (12:16)
--- NOTE | 2025-04-28 15:04 | W.PFT ---
Date of service: 04/25/25 Time of Service: 10:01 Pulmonary Function Test Result Indications: Dyspnea Impression 1. Good patient effort was noted. ATS standards for reproducibility were met. 2. Spirometry showed mild obstructive lung disease with an FEV1 of 86% (2.21 L) 3. TLC was normal. No evidence of restrictive lung disease 4. DLCO was normal at 91%, 5. At 4 mg/mL of methacholine, there was a 30% fall in FEV1 Conclusion: - mild obstructive lung disease - positive methacholine challenge test
== END 2025-04-25 02:12 | disposition home or self-care (01) ==
LOC: RT 02:11
PROVIDERS: PCP Family Medicine; Visit Provider Family Medicine
DX: R06.09 Other forms of dyspnea (principal); J44.9 Chronic obstructive pulmonary disease, unspecified
CPT/HCPCS: 94070; 94726; 94729; 95070; J7674

== ENCOUNTER 2025-05-20 09:24 | Outpatient (REF) | payer MEDICARE, OTHER, SELFPAY ==
[2025-05-20 14:18] LABS: HCT 34.1 % (40.0-50.0); HGB 10.8 g/dL (13.5-17.5); MCH 27.8 pg (27.0-33.0); MCHC 31.7 % (32.0-36.0); MCV 88 fL (80-95); MPV 12.5 fL (8.0-11.0); Platelet Count 184 10^3/uL (130-400); RBC 3.88 10^6/uL (4.36-5.78); RDW 14.0 % (11.8-14.1); WBC 3.80 10^3/uL (4.4-10.8)
[2025-05-20 15:11] LABS: Anion Gap 9.3 mmol/L (3-11); BUN 22 mg/dL (9-23); CO2 23.7 mmol/L (20.0-31.0); Calcium 8.9 mg/dL (8.3-10.6); Chloride 113 mmol/L (98-107); Glucose 88 mg/dL (74-106); Iron 31 ug/dL (65-175); Potassium 4.6 mmol/L (3.5-5.1); Sodium 146 mmol/L (136-145); Total Iron Binding Capacity 354 ug/dL (250-425); Transferrin Sat 9 % (20-55)
[2025-05-20 15:12] LABS: Ferritin 8 ng/mL (11-307)
[2025-05-21 18:35] LABS: Abs Immature Grans 0.01 10^3/uL (0.0-0.06); Immature Grans % 0.3 %
[2025-05-21 18:40] LABS: RDW-SD 44.9 fL
== END 2025-05-20 09:25 | disposition home or self-care (01) ==
LOC: NCHCN 09:24
PROVIDERS: PCP Family Medicine; Visit Provider Family Medicine
DX: D64.9 Anemia, unspecified (principal)
CPT/HCPCS: 80048; 85027; 82728; 83540; 83550; 83880; 85007